=== PATIENT | male | born 1965 | race Caucasian/White ===

== ENCOUNTER → 2020-04-28 13:40 | Outpatient (BNVA) | payer OTHER, SELFPAY | PROVIDERS: PCP Family Medicine; Referring Provider Family Medicine; Visit Provider Internal Medicine | DX: E11.65 Type 2 diabetes mellitus with hyperglycemia (principal); E78.5 Hyperlipidemia, unspecified; I10 Essential (primary) hypertension | CPT/HCPCS: 99205 ==

== ENCOUNTER → 2020-06-22 14:33 | Outpatient (BNVA) | payer OTHER, SELFPAY | PROVIDERS: PCP Family Medicine; Visit Provider Internal Medicine | DX: E11.65 Type 2 diabetes mellitus with hyperglycemia (principal); E78.5 Hyperlipidemia, unspecified; I10 Essential (primary) hypertension | CPT/HCPCS: 99214 ==

== ENCOUNTER 2020-06-24 16:39 | Outpatient (CLI) | payer OTHER, SELFPAY ==
--- NOTE | 2020-06-24 16:45 | MR_ITS ---
WS: [id number] MRI LEFT SHOULDER NONCONTRAST TECHNIQUE: Sagittal T2, coronal T1, T2 and proton density imaging. Axial gradient PDE imaging. CLINICAL INFORMATION: M67.912 - Unspecified disorder of synovium and tendon, left shoulder COMPARISON: None. FINDINGS: Mild degenerative arthritis at the AC joint with mild edema. Mild downsloping of the acromion. Preser vation of the subacromial space. Normal supraspinatus and infraspinatus. Normal teres minor. Normal s ubscapularis. No high-grade rotator cuff tears. Mild tendinopathy in the distal supraspinatus. Normal intra-articular biceps tendon. Normal biceps tendon in the bicipital groove. Normal biceps labral anchor. Degenerative fraying of th e glenoid labrum. Small subcoracoid effusion. MR/MR shoulder LT wo con* [id number] IMPRESSION: 1. Mild degenerative arthritis at the AC joint with mild edema. 2. No high-grade rotator cuff tear. Tendinopathy in the distal supraspinatus. 3. Normal intra-articular biceps tendon. Normal biceps tendon in the bicipital groove. 4. Mild degenerative fraying of the glenoid labrum. 5. Small subcoracoid effusion. 6. No other significant findings.
== END 2020-06-24 16:40 | disposition home or self-care (01) ==
LOC: RADSHAW 16:42
PROVIDERS: PCP Family Medicine; Visit Provider Orthopaedic Surgery
DX: M67.912 Unspecified disorder of synovium and tendon, left shoulder (principal); M25.412 Effusion, left shoulder; M19.012 Primary osteoarthritis, left shoulder
CPT/HCPCS: 73221

== ENCOUNTER 2020-07-13 12:20 | Outpatient (RCR) | payer OTHER, SELFPAY | END 2020-08-06 23:59 | disposition home or self-care (01) | LOC: SPT 12:20 | PROVIDERS: PCP Family Medicine; Referring Provider Orthopaedic Surgery; Visit Provider Orthopaedic Surgery | DX: M75.02 Adhesive capsulitis of left shoulder (principal) | CPT/HCPCS: 97110; 97161 ==

== ENCOUNTER 2020-08-07 06:00 | Outpatient (RCR) | payer OTHER, SELFPAY | END 2020-09-06 23:59 | disposition home or self-care (01) | LOC: SPT 06:00 | PROVIDERS: PCP Family Medicine; Referring Provider Orthopaedic Surgery; Visit Provider Orthopaedic Surgery | DX: M75.02 Adhesive capsulitis of left shoulder (principal) | CPT/HCPCS: 97110; 97140 ==

== ENCOUNTER → 2020-08-26 08:32 | Outpatient (BNVA) | payer OTHER, SELFPAY | PROVIDERS: PCP Family Medicine; Visit Provider Nurse Practitioner Family | DX: R31.0 Gross hematuria (principal) | CPT/HCPCS: 81003; 88112 ==

== ENCOUNTER 2020-09-07 06:00 | Outpatient (RCR) | payer OTHER, SELFPAY | END 2020-10-06 23:59 | disposition home or self-care (01) | LOC: SPT 06:00 | PROVIDERS: PCP Family Medicine; Referring Provider Orthopaedic Surgery; Visit Provider Orthopaedic Surgery | DX: M75.02 Adhesive capsulitis of left shoulder (principal) | CPT/HCPCS: 97110 ==

== ENCOUNTER 2020-10-13 07:31 | Outpatient (CLI) | payer OTHER, SELFPAY ==
[2020-10-13] MEDS: iohexol 300 mg/mL 100 mL Btl IV (08:07)
--- NOTE | 2020-10-13 08:30 | CT_ITS ---
WS: [id number] CT ABDOMEN AND PELVIS WITH AND WITHOUT CONTRAST HISTORY: GROSS HEMATURIA TECHNIQUE: Unenhanced 5 mm axial imaging first performed through the abdomen. Post contrast imaging t hrough the abdomen and pelvis. Oral contrast has not been provided. Sagittal and coronal reformats a re submitted. All CT scans at [facility] use at least one of these dose optimization tech niques: automated exposure control; mA and/or kV adjustment per patient size (includes targeted exams where dose is matched to clinical indication); or iterative reconstruction. CONTRAST: Omnipaque 300; 95 mL IV. DLP: 2423.79 mGy.cm COMPARISON: None available. Benign granuloma LEFT lower lobe. Chronic emphysema. Heart size is normal. No hiatal hernia. Mild enlargement of the liver. Variable density and enhancement throughout the liver and changes of h epatic steatosis with areas of sparing. No bile duct dilatation. Normal portal vein. Normal spleen. N ormal pancreas and gallbladder. Adrenal glands are benign. Mild to moderate atherosclerosis of the ab dominal aorta with no aneurysm. Calcifications extend into the iliac arteries bilaterally. No signifi cant obstruction of the mesenteric arteries. RIGHT kidney: 12.3 cm in length. No calcification or solid mass or obstruction. Cortical cyst measure s 8 mm in the anterior kidney. Normal ureter. No uroepithelial lesions. Moderate opacification RIGHT ureter. LEFT kidney: 11.9 cm in length. No renal or ureteral calcification or obstruction. There are multiple cysts in the kidney. The largest in the upper pole measures 3.4 x 2.8 cm. There are additional small er cortical cysts. No solid mass. No uroepithelial lesions. Very intermittent visualization of the ur eter on the delayed study. Supraumbilical abdominal wall hernia contains fat only. There is an additional smaller umbilical madhu ia containing fat only. No ascites or adenopathy. Mild diffuse fecal retention. Anastomotic sutures are noted within the RIGHT abdomen. Partial colonic resection. The appendix is not identified. Moderately well distended urinary bladder on the delayed imaging. No intraluminal filling defect. No bladder wall thickening or asymmetry. CT/CT abdomen pelvis wo/w [id number] IMPRESSION: 1. No solid renal mass or calcifications. 2. Bilateral renal cysts. 3. No filling defect or enhancing tumor identified in the urinary bladder. 4. Mild hepatomegaly with diffuse moderate hepatic steatosis. 5. Partial RIGHT colon resection. Anastomotic sutures are identified with no m ass or obstruction at the anastomosis. 6. Umbilical and supraumbilical fat-containing hernias.
== END 2020-10-13 07:32 | disposition home or self-care (01) ==
LOC: RAD 07:33
PROVIDERS: PCP Family Medicine; Visit Provider Nurse Practitioner Family
DX: R31.0 Gross hematuria (principal); N28.1 Cyst of kidney, acquired; R16.0 Hepatomegaly, not elsewhere classified; K76.0 Fatty (change of) liver, not elsewhere classified; K42.9 Umbilical hernia without obstruction or gangrene; K43.9 Ventral hernia without obstruction or gangrene
CPT/HCPCS: 74178; 81003

== ENCOUNTER → 2022-12-05 16:00 | Outpatient (BNVA) | payer OTHER, SELFPAY | PROVIDERS: PCP Family Medicine; Visit Provider Family Medicine | DX: E11.65 Type 2 diabetes mellitus with hyperglycemia (principal); E78.5 Hyperlipidemia, unspecified; I10 Essential (primary) hypertension | CPT/HCPCS: 80053; 80061; 81000; 82043; 82607; 83036; 84443; 85025 ==

== ENCOUNTER → 2023-02-12 15:50 | Outpatient (BNVA) | payer OTHER, SELFPAY | PROVIDERS: PCP Family Medicine; Visit Provider Family Medicine | DX: E11.65 Type 2 diabetes mellitus with hyperglycemia (principal); K21.9 Gastro-esophageal reflux disease without esophagitis | CPT/HCPCS: 80048; 80061; 83036 ==

== ENCOUNTER 2023-04-20 23:17 | Inpatient (IN) | payer OTHER, SELFPAY ==
[2023-04-20 23:25] VITALS: BP 145/88; PULSE 107; RESP 18; TEMP 36.1; O2SAT 97
--- NOTE | 2023-04-20 23:28 | ECG_ITS ---
[facility] Test Date: 2023-04-21 Pat Name: Braeden Cuellar Department: Room: Gender: Male Manager Creative: : 1965 Requested By: Rm Rodrigues Order Number: [id number] Dino MD: Josh Lee M.D. Measurements Intervals [place] Rate: 104 P: 75 MD: 149 QRS: 52 QRSD: 80 T: -69 QT: 337 QTc: 444 Interpretive Statements SINUS TACHYCARDIA POSSIBLE INFERIOR MYOCARDIAL INFARCTION , OF INDETERMINATE AGE [30 ms Q WAVE IN II/aVF] No previous ECG available for comparison Electronically Signed On 04-23-2023 7:58:47 ADMINISTRATIVE PERSONAL ASSISTANT by Josh Lee M.D. [id number]
--- NOTE | 2023-04-20 23:59 | ECG_ITS ---
[facility] Test Date: 2023-04-20 Pat Name: Braeden Cuellar Department: Room: Gender: Male New Car Inspector: : 1965 Requested By: Pearl Flores Order Number: [id number] Dino MD: Josh Lee M.D. Measurements Intervals [place] Rate: 114 P: 83 OK: 132 QRS: 79 QRSD: 94 T: -72 QT: 326 QTc: 449 Interpretive Statements SINUS TACHYCARDIA ST DEVIATION AND MODERATE T-WAVE ABNORMALITY, CONSIDER INFERIOR ISCHEMIA [-0.1+ mV T-WAVE IN II/aVF] No previous ECG available for comparison Electronically Signed On 04-23-2023 7:58:51 SHIP PROPELLER FINISHER by Josh Lee M.D. [id number]
--- NOTE | 2023-04-20 23:59 | XRR_ITS ---
PROCEDURE INFORMATION: Exam: XR Chest Exam date and time: 04/21/2023 12:03 AM Age: 58 years old Clinical indication: Chest pressure; Patient HX: C/O chest pain; Additional info: Cp TECHNIQUE: Imaging protocol: Radiologic exam of the chest. Views: 1 view. COMPARISON: CR XR shoulder RT min 2V* [id number] 10/31/2021 3:38 PM FINDINGS: Lungs: Unremarkable. No consolidation. Pleural spaces: Unremarkable. No pleural effusion. No pneumothorax. Heart/Mediastinum: Unremarkable. No cardiomegaly. Bones/joints: Unremarkable. XR/XR chest 1V [id number] IMPRESSION: No acute findings.
[2023-04-21] VITALS (18 sets, daily range): BP systolic 104–131; BP diastolic 66–88; PULSE 70–109; RESP 16–21; TEMP 36.5–36.8; O2SAT 94–98; BMI 26.2
[2023-04-21 00:17] LABS: Basophils # 0.1 10^3/uL (0.0-0.1); Basophils % 1.3 %; Eosinophils # 0.2 10^3/uL (0.0-0.8); Eosinophils % 1.9 %; Hematocrit 51.5 % (37-53); Lymphocytes # 2.2 10^3/uL (0.8-4.8); Lymphocytes % 23.6 %; Mean Corpuscular HGB Conc 33.8 g/dL (30-55); Mean Corpuscular Hemoglobin 28.5 pg (27-33); Mean Corpuscular Volume 84.3 fl (82-101); Mean Platelet Volume 10.3 fL (7.4-10.4); Monocytes # 1.1 10^3/uL (0.2-0.9); Monocytes % 11.5 %; Neutrophils # 5.81 10^3/uL (1.8-7.7); Neutrophils % 61.5 %; Nucleated Red Blood Cells % 0 %; Platelet Count 237 10^3/cmm (157-399); Red Blood Count 6.11 10^6/uL (3.85-5.65); Red Cell Distribution Width 14.3 % (12.1-15.1); White Blood Count 9.45 10^3/uL (3.29-11.43)
--- NOTE | 2023-04-21 00:25 | CTR_ITS ---
PROCEDURE INFORMATION: Exam: CTA Chest With Contrast Exam date and time: 04/21/2023 12:35 AM Age: 58 years old Clinical indication: Chest pressure; Patient HX: C/O chest pain. Tachycardic. Currently anticoagulated for dvt. ; Additional info: R/O pe, HX of dvt, tachy w/ ekg changes TECHNIQUE: Imaging protocol: Computed tomographic angiography of the chest with contrast. Exam focused on the arteries. 3D rendering (Not supervised by radiologist): MIP and/or 3D reconstructed images were created by the technologist. Radiation optimization: All CT scans at this facility use at least one of these dose optimization techniques: automated exposure control; mA and/or kV adjustment per patient size (includes targeted exams where dose is matched to clinical indication); or iterative reconstruction. Contrast material: OMNI 350; Contrast volume: 59 ml; Contrast route: INTRAVENOUS (IV); COMPARISON: CR (CHEST, ) 04/21/2023 12:03 AM RADIATION DOSE METRICS: Total DLP (mGy-cm): 366.33 FINDINGS: Pulmonary arteries: Normal. No pulmonary emboli. Aorta: Ascending thoracic aorta dilated at 3.6 cm. Lungs: Unremarkable. No consolidation. No masses. Pleural spaces: Unremarkable. No pneumothorax. No pleural effusion. Heart: Unremarkable. No cardiomegaly. No pericardial effusion. Lymph nodes: Scattered subcentimeter short axis nonspecific mediastinal lymph nodes. Kidneys and ureters: Left kidney cyst, negative for follow-up advised. Bones/joints: Unremarkable. No acute fracture. Soft tissues: Unremarkable. CT/CT angio chest PE protcl [id number] IMPRESSION: 1. Negative for pulmonary embolus 2. Scattered subcentimeter short axis nonspecific mediastinal lymph nodes. 3. Ascending thoracic aorta dilated at 3.6 cm. 4. Left kidney cyst, negative for follow-up advised.
[2023-04-21 00:27] LABS: Influenza A by IFA negative (Negative); Influenza B by IFA negative (Negative)
--- NOTE | 2023-04-21 00:27 | W.ED.CHESTPA ---
Documented by User: MIKAELA Coopre 04/21/23 01:48 HPI - Chest Pain General: Chief Complaint: Chest Pain Stated Complaint: Shoulder pain down arm Time Seen by Provider: 04/20/23 23:58 Source: patient and family Mode of arrival: ambulatory Limitations: no limitations History of Present Illness: Patient presents emergency department today accompanied by his for evaluation treatment of chest pains and left arm pain. Patient reports that he was working in his wood shop approximately 3 days ago when pain started. He reports pain across his chest from right to left and extending down into his left arm. He also feels pain in his back around his shoulder blades. notes he has been increasingly fatigued since that time and he has had a little bit of cough and shortness of breath. He was a little dizzy when the pain originally started but has not had any since. He denies headache or nasal congestion. No fevers. He has not had vomiting or diarrhea. Patient reports about 8 years ago he had a DVT in his leg. Since that time he has been anticoagulated. He has no previous history of PE. Patient has a history of diabetes, emphysema and hypertension for which she takes medication. Patient reports he has been taking his medications as prescribed during this time. Review of Systems General: Reports: 10 or more systems reviewed and unremarkable except in HPI and below PFSH ED PFSH: Medical History Supraumbilical hernia Umbilical hernia Hepatic steatosis Emphysema of lung Atherosclerosis Bilateral renal cysts History of colon polyps Smoker Blood clotting disorder Hypertension Tremor of both hands Surgical History History of partial colectomy partial right colon resection History of tonsillectomy Family History Mother , at age 60 Diabetes CAD (coronary artery disease) Brother Cancer throat Other Parkinsonism Denies family history of Stroke Social History Smoking and tobacco/nicotine status: current every day tobacco/nicotine user cigarettes Packs smoked per day: 1.5 Quit status (tobacco/nicotine): not considering quitting Alcohol intake: never Substance/Drug Use: former Date of last use: marijuana Household members: spouse Marital status: Number of children: 2 Number of grandchildren: 4 service: No Current occupational status: employed 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[employer]) Leisure activites: music and other Leisure activities details: motorcycle Special tod needs: No Agree to transfusion: Yes Physical Exam Const: COMMON NORMALS: no acute distress, patient oriented x3 and alert Eye: COMMON NORMALS: Equal, round and reactive pupils present, EOMs intact bilaterally and conjunctivae normal CONJUNCTIVA: Yes conjunctivae normal PUPIL: Yes Equal, round and reactive pupils present Neck/C-Spine: COMMON NORMALS: no JVD Lymph: LYMPHATIC: no lymphadenopathy noted Resp: COMMON NORMALS: normal respiratory effort, No retractions and No use of accessory muscles OTHER: Diminished breath sounds bilaterally. Oxygen 97% on room air. Cardio: COMMON NORMALS: no JVD and regular rate RATE: regular rate GI: OTHER: Normoactive bowel sounds. Abdomen is soft. Nontender on palpation. : COMMON NORMALS: Yes no CVA tenderness BLADDER/KIDNEY EXAM: Yes no CVA tenderness Back/Pelvis: COMMON NORMALS: no CVA tenderness, thoracic and lumbar spine normal to inspection and thoraco-lumbar ROM normal Extremity: COMMON NORMALS: normal to inspection, full ROM and no pedal edema Neuro: COMMON NORMALS: patient oriented x3 SENSORIUM/ORIENTATION: Yes alert Skin: COMMON NORMALS: no rashes or lesions noted and turgor normal GENERAL SKIN EXAM: no rashes or lesions noted and turgor normal Course Vital Signs: Vital signs: Vital Signs Temperature 98.3 F 04/21/23 19:32 Pulse Rate 80 04/21/23 19:32 Respiratory Rate 16 04/21/23 19:32 Blood Pressure 110/69 04/21/23 19:32 Pulse Oximetry 95 04/21/23 19:32 Oxygen Delivery Me thod Room Air 04/21/23 19:32 MDM - Chest Pain Medical Decision Making Patient presents emergency department today for evaluation treatment of generalized upper chest pain radiating into the left arm and affecting his upper back between his shoulder blades. Patient reports that this pain has waxed and waned but never fully resolved for the last 3 days. Initially, he felt dizzy but, states dizziness has not returned. He reports not being otherwise ill. While he does have some cough, he has not had any congestion, sore throat, or fever. Patient does have a history of DVT and is currently anticoagulated. Patient's initial EKG from triage was shown to Dr. Reina. There was some concerns with findings on this EKG. Lab work shows concerns for an elevated troponin at baseline. Given patient's age, history, EKG findings, and tachycardia on arrival, Dr. Reina recommended proceeding directly to a CTA rather than waiting for a D-dimer. I did discuss these concerns with the patient and his who both agreed to proceeding on with the scan of the chest. Given the patient's elevated troponins, we will certainly need to wait for a 2-hour troponin to further evaluate the cause of the patient's chest pains. Transfer of care to Dr. Reina at 0100 Lab Data 04/21/23 00:00 04/21/23 00:00 Radiology Impressions Chest X-Ray 04/20/23 23:59 IMPRESSION: No acute findings. Chest CTA 04/21/23 00:25 IMPRESSION: 1. Negative for pulmonary embolus 2. Scattered subcentimeter short axis nonspecific mediastinal lymph nodes. 3. Ascending thoracic aorta dilated at 3.6 cm. 4. Left kidney cyst, negative for follow-up advised. Laboratory Results WBC 9.45 10^3/uL (3.29-11.43) 04/21/23 00:00 RBC 6.11 10^6/uL (3.85-5.65) H 04/21/23 00:00 Hgb 17.40 g/dL (11.27-16.99) H 04/21/23 00:00 Hct 51.5 % (37-53) 04/21/23 00:00 MCV 84.3 fl (82-101) 04/21/23 00:00 MCH 28.5 pg (27-33) 04/21/23 00:00 MCHC 33.8 g/dL (30-55) 04/21/23 00:00 RDW 14.3 % (12.1-15.1) 04/21/23 00:00 Plt Count 237 10^3/cmm (157-399) 04/21/23 00:00 MPV 10.3 fL (7.4-10.4) 04/21/23 00:00 Neut % (Auto) 61.5 % 04/21/23 00:00 Lymph % (Auto) 23.6 % 04/21/23 00:00 Mitchell % (Auto) 11.5 % 04/21/23 00:00 Eos % (Auto) 1.9 % 04/21/23 00:00 Baso % (Auto) 1.3 % 04/21/23 00:00 Neut # (Auto) 5.81 10^3/uL (1.8-7.7) 04/21/23 00:00 Lymph # (Auto) 2.2 10^3/uL (0.8-4.8) 04/21/23 00:00 Mitchell # (Auto) 1.1 10^3/uL (0.2-0.9) H 04/21/23 00:00 Eos # (Auto) 0.2 10^3/uL (0.0-0.8) 04/21/23 00:00 Baso # (Auto) 0.1 10^3/uL (0.0-0.1) 04/21/23 00:00 Nucleated RBC % (auto) 0 % 04/21/23 00:00 Nucleated RBCs # 0.0 /100WBC 04/21/23 00:00 Sodium 131 mmol/L (136-145) L 04/21/23 00:00 Potassium 4.2 mmol/L (3.5-5.1) 04/21/23 00:00 Chloride 95 mmol/L (98-107) L 04/21/23 00:00 Carbon Dioxide 21 mmol/L (22-29) L 04/21/23 00:00 Anion Gap 19.2 (5-19) H 04/21/23 00:00 BUN 14 mg/dL (6-20) 04/21/23 00:00 Creatinine 0.8 mg/dL (0.7-1.2) 04/21/23 00:00 GFR Calculation 99.3 mL/min (90-130) 04/21/23 00:00 Glucose 291 mg/dL (65-115) H 04/21/23 00:00 Calculated Osmolality 283 mOsm/kg (285-295) L 04/21/23 00:00 Calcium 9.8 mg/dL (8.5-10.5) 04/21/23 00:00 Total Bilirubin 0.6 mg/dL (0.15-1.2) 04/21/23 00:00 AST 22 U/L (0-40) 04/21/23 00:00 ALT 18 U/L (0-41) 04/21/23 00:00 Alkaline Phosphatase 81 U/L (40-130) 04/21/23 00:00 Troponin T Baseline 249 ng/L (0-15) H* 04/21/23 00:00 Troponin T 120 Minute 286.4 ng/L (0-15) H 04/21/23 01:30 Delta Troponin T 37.4 ABS# (0-10) H* 04/21/23 01:30 NT-Pro-B Natriuret Pep 1983 pg/mL (0-125) H 04/21/23 00:00 Total Protein 7.3 g/dL (6.6-8.7) 04/21/23 00:00 Albumin 4.4 g/dL (3.5-5.2) 04/21/23 00:00 Globulin 2.9 g/dL (1.3-4.6) 04/21/23 00:00 Influenza Type A Ag negative (Negative) 04/21/23 00:00 Influenza Type B Ag negative (Negative) 04/21/23 00:00 SARS-CoV-2 Ag (Rapid) Negative (Negative) 04/21/23 00:00 All radiology interpretation(s) finalized by discharge Discharge Plan Discharge Patient Disposition: Admitted As Inpatient Admit Provider: Elysia Mc Clinical Impression: NSTEMI (non-ST elevated myocardial infarction) Condition: Stable Coding Level of Care Code ED Traffic Circuit Engineer for Chg Fwd Documented by User: Rm Reina DO 04/21/23 22:40 HPI - Chest Pain General: Chief Complaint: Chest Pain Stated Complaint: Shoulder pain down arm Time Seen by Provider: 04/20/23 23:58 PFSH ED PFSH: Medical History Supraumbilical hernia Umbilical hernia Hepatic steatosis Emphysema of lung Atherosclerosis Bilateral renal cysts History of colon polyps Smoker Blood clotting disorder Hypertension Tremor of both hands Surgical History History of partial colectomy partial right colon resection History of tonsillectomy Family History Mother , at age 60 Diabetes CAD (coronary artery disease) Brother Cancer throat Other Parkinsonism Denies family history of Stroke Social History Smoking and tobacco/nicotine status: current every day tobacco/nicotine user cigarettes Packs smoked per day: 1.5 Quit status (tobacco/nicotine): not considering quitting Alcohol intake: never Substance/Drug Use: former Date of last use: marijuana Household members: spouse Marital status: Number of children: 2 Number of grandchildren: 4 service: No Current occupational status: employed 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[employer]) Leisure 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 Patient reports that this pain has waxed and waned but never fully resolved for the last 3 days. Initially, he felt dizzy but, states dizziness has not returned. He reports not being otherwise ill. While he does have some cough, he has not had any congestion, sore throat, or fever. Patient does have a history of DVT and is currently anticoagulated. Patient's initial EKG from triage was shown to Dr. Reina. There was some concerns with findings on this EKG. Lab work shows concerns for an elevated troponin at baseline. Given patient's age, history, EKG findings, and tachycardia on arrival, Dr. Reina recommended proceeding directly to a CTA rather than waiting for a D-dimer. I did discuss these concerns with the patient and his who both agreed to proceeding on with the scan of the chest. Given the patient's elevated troponins, we will certainly need to wait for a 2-hour troponin to further evaluate the cause of the patient's chest pains. Transfer of care to Dr. Reina at 0100 This patient was originally seen by Mrs. Tj PA-C.? I agree with her history, evaluation, and treatment. This patient had a significant delta troponin of 37 at 2 hours. He is already anticoagulated on rivaroxaban. He is given 300 mg Plavix and aspirin. He is pain-free here in the ER. He will be admitted for chest pain and non-ST elevation [place]. Hospitalist will see the patient. Lab Data 04/21/23 00:00 04/21/23 00:00 Radiology Impressions Chest X-Ray 04/20/23 23:59 IMPRESSION: No acute findings. Chest CTA 04/21/23 00:25 IMPRESSION: 1. Negative for pulmonary embolus 2. Scattered subcentimeter short axis nonspecific mediastinal lymph nodes. 3. Ascending thoracic aorta dilated at 3.6 cm. 4. Left kidney cyst, negative for follow-up advised. Laboratory Results WBC 9.45 10^3/uL (3.29-11.43) 04/21/23 00:00 RBC 6.11 10^6/uL (3.85-5.65) H 04/21/23 00:00 Hgb 17.40 g/dL (11.27-16.99) H 04/21/23 00:00 Hct 51.5 % (37-53) 04/21/23 00:00 MCV 84.3 fl (82-101) 04/21/23 00:00 MCH 28.5 pg (27-33) 04/21/23 00:00 MCHC 33.8 g/dL (30-55) 04/21/23 00:00 RDW 14.3 % (12.1-15.1) 04/21/23 00:00 Plt Count 237 10^3/cmm (157-399) 04/21/23 00:00 MPV 10.3 fL (7.4-10.4) 04/21/23 00:00 Neut % (Auto) 61.5 % 04/21/23 00:00 Lymph % (Auto) 23.6 % 04/21/23 00:00 Mitchell % (Auto) 11.5 % 04/21/23 00:00 Eos % (Auto) 1.9 % 04/21/23 00:00 Baso % (Auto) 1.3 % 04/21/23 00:00 Neut # (Auto) 5.81 10^3/uL (1.8-7.7) 04/21/23 00:00 Lymph # (Auto) 2.2 10^3/uL (0.8-4.8) 04/21/23 00:00 [place] # (Auto) 1.1 10^3/uL (0.2-0.9) H 04/21/23 00:00 Eos # (Auto) 0.2 10^3/uL (0.0-0.8) 04/21/23 00:00 Baso # (Auto) 0.1 10^3/uL (0.0-0.1) 04/21/23 00:00 Nucleated RBC % (auto) 0 % 04/21/23 00:00 Nucleated RBCs # 0.0 /100WBC 04/21/23 00:00 Sodium 131 mmol/L (136-145) L 04/21/23 00:00 Potassium 4.2 mmol/L (3.5-5.1) 04/21/23 00:00 Chloride 95 mmol/L (98-107) L 04/21/23 00:00 Carbon Dioxide 21 mmol/L (22-29) L 04/21/23 00:00 Anion Gap 19.2 (5-19) H 04/21/23 00:00 BUN 14 mg/dL (6-20) 04/21/23 00:00 Creatinine 0.8 mg/dL (0.7-1.2) 04/21/23 00:00 GFR Calculation 99.3 mL/min (90-130) 04/21/23 00:00 Glucose 291 mg/dL (65-115) H 04/21/23 00:00 Calculated Osmolality 283 mOsm/kg (285-295) L 04/21/23 00:00 Calcium 9.8 mg/dL (8.5-10.5) 04/21/23 00:00 Total Bilirubin 0.6 mg/dL (0.15-1.2) 04/21/23 00:00 AST 22 U/L (0-40) 04/21/23 00:00 ALT 18 U/L (0-41) 04/21/23 00:00 Alkaline Phosphatase 81 U/L (40-130) 04/21/23 00:00 Troponin T Baseline 249 ng/L (0-15) H* 04/21/23 00:00 Troponin T 120 Minute 286.4 ng/L (0-15) H 04/21/23 01:30 Delta Troponin T 37.4 ABS# (0-10) H* 04/21/23 01:30 NT-Pro-B Natriuret Pep 1983 pg/mL (0-125) H 04/21/23 00:00 Total Protein 7.3 g/dL (6.6-8.7) 04/21/23 00:00 Albumin 4.4 g/dL (3.5-5.2) 04/21/23 00:00 Globulin 2.9 g/dL (1.3-4.6) 04/21/23 00:00 Influenza Type A Ag negative (Negative) 04/21/23 00:00 Influenza Type B Ag negative (Negative) 04/21/23 00:00 SARS-CoV-2 Ag (Rapid) Negative (Negative) 04/21/23 00:00 Discharge Plan Discharge Patient Disposition: Admitted As Inpatient Admit Provider: Elysia Mc Clinical Impression: NSTEMI (non-ST elevated myocardial infarction) Condition: Stable Coding Level of Care Code ED Traffic Circuit Engineer for Mario Barcenas
[2023-04-21 00:30] LABS: SARS Covid-2 Antigen Negative (Negative)
[2023-04-21] MEDS: iohexol 350 mg/mL 500 mL Btl (per mL) IV (00:37)
[2023-04-21 00:44] LABS: Troponin(5th) Baseline 249 ng/L (0-15)
[2023-04-21 00:48] LABS: Alanine Aminotransferase 18 U/L (0-41); Albumin Level 4.4 g/dL (3.5-5.2); Alkaline Phosphatase 81 U/L (40-130); Anion Gap 19.2 (5-19); Aspartate Amino Transferase 22 U/L (0-40); Blood Urea Nitrogen 14 mg/dL (6-20); Calcium 9.8 mg/dL (8.5-10.5); Carbon Dioxide 21 mmol/L (22-29); Chloride 95 mmol/L (98-107); Globulin 2.9 g/dL (1.3-4.6); Glomerular Filtration Rate 99.3 mL/min (90-130); Glucose 291 mg/dL (65-115); NT Pro B Type Natriuretic Pept 1983 pg/mL (0-125); Osmolality Calculated 283 mOsm/kg (285-295); Potassium 4.2 mmol/L (3.5-5.1); Sodium 131 mmol/L (136-145); Total Bilirubin 0.6 mg/dL (0.15-1.2); Total Protein 7.3 g/dL (6.6-8.7)
--- NOTE | 2023-04-21 00:50 | PC.NURSE ---
Hypnotherapist gave Lea SEGOVIA report at 0050. pt currently in CT.
[2023-04-21 01:56] LABS: Troponin 5 2HR 286.4 ng/L (0-15)
[2023-04-21 01:57] LABS: Troponin 5 2HR Delta 37.4 ABS# (0-10)
--- NOTE | 2023-04-21 01:59 | ECG_ITS ---
Test Date: 2023-04-21 Pat Name: Braeden Cuellar Department: Room: Gender: Male Youth Director: : 1965 Requested By: Pearl Flores Order Number: [id number] Dino MD: Josh Lee M.D. Measurements Intervals [place] Rate: 86 P: 71 CO: 152 QRS: 52 QRSD: 85 T: -53 QT: 358 QTc: 430 Interpretive Statements SINUS RHYTHM MODERATE T-WAVE ABNORMALITY, CONSIDER INFERIOR ISCHEMIA [-0.1+ mV T-WAVE IN II/aVF] Compared to ECG 04/21/2023 00:09:22 T-wave abnormality now present Possible ischemia now present Sinus tachycardia no longer present Myocardial infarct finding no longer present Electronically Signed On 04-23-2023 8:05:55 MANAGER PRICING by Josh Lee M.D. [id number]
[2023-04-21] MEDS: aspirin 81 mg Chew Tablet 324 MG PO (02:21)
[2023-04-21] MEDS: clopidogrel 300 mg Tablet PO (02:21)
[2023-04-21] MEDS: morphine 4 mg/mL SDV 1 mL 2 MG IVP (02:36)
[2023-04-21] MEDS: ondansetron 2 mg/ML SDV 2 mL 4 MG IVP (02:36)
--- NOTE | 2023-04-21 05:12 | P.HP_ITS ---
Providers/Chief Complaint 2 Admitting Physician: Elysia Mc MD Primary Care Provider: Meg De León MD Chief Complaint: Shoulder pain down arm History of Present Illness Braeden Cuellar is a 58 year old male with a past medical history of diabetes mellitus, hypertension, history of DVT and PE x2 currently on Xarelto , presenting to the hospital today with chest discomfort. Patient estimates the discomfort started approximately 4 days ago. States that the pain started around the right shoulder, radiated into middle of the chest and then into the left arm all the way down to the hand. Pain has been intermittent. It has never completely resolved, does tend to wax and pain when. No apparent exacerbating or relieving factors. Not worsened with exercise. Denies any other symptoms such as cough palpitations syncope. Denies any fever. No missed doses of Xarelto. Typically takes the medication and at night, last dose taken on May 21 at 8 PM. Review of Systems 2 General: Reports: 10 or more systems reviewed and unremarkable except in HPI and below Const: Denies: fever(s), chills or body aches Eyes: Denies: change in vision, blurry vision or photophobia ENMT: Reports: hoarseness; Denies: throat pain, enlarged tonsils, odynophagia or nasal congestion Card: Denies: chest pain, palpitations, irregular heart rhythm, edema, swelling of feet/ankles, lightheadedness, pre-syncope, dyspnea on exertion or orthopnea Resp: Denies: dyspnea, productive cough, non-productive cough, wheezing, stridor, pain on inspiration, change in phlegm color, hemoptysis or chest congestion GI: Denies: abdominal pain, nausea, vomiting, hematemesis, coffee ground emesis, dysphagia, heartburn, diarrhea, constipation, GI cramping, change in stool character, hematochezia or melena : Denies: flank pain, dysuria, urinary frequency, urinary urgency, urinary hesitancy or hematuria Musc: Denies: neck pain, back pain, extremity pain, joint swelling, joint warmth or deformity Neuro: Denies: headache(s), numbness in extremities, weakness in extremities, sensory changes, difficulty walking, frequent falls, dizziness, vertigo, behavioral changes, Slurred speech present or seizure-like activity Psych: Denies: anxiety, depression, suicidal ideation or homicidal ideation Endo: Denies: polyuria, polydipsia, tired all the time, cold intolerance or hot flashes Earl/Lymph: Denies: easy bruising or easy bleeding Medications/Allergies Home Medications Medication Instructions Recorded Confirmed Last Taken Type rivaroxaban 20 mg tablet (Xarelto) 20 mg PO BEDTIME 04/20/20 04/21/23 Unknown History empagliflozin 25 mg tablet 25 mg PO BEDTIME 04/21/23 04/21/23 Unknown History (Jardiance) famotidine 20 mg tablet 20 mg PO BEDTIME 04/21/23 04/21/23 Unknown History glipizide 10 mg tablet 10 mg PO BEDTIME 04/21/23 04/21/23 Unknown History lisinopril 10 mg tablet 20 mg PO BEDTIME 04/21/23 04/21/23 Unknown History metformin 500 mg 24 hr 2,000 mg PO BEDTIME 04/21/23 04/21/23 Unknown History tablet,extended release (gastric retention) simvastatin 40 mg tablet 40 mg PO BEDTIME 04/21/23 04/21/23 Unknown History sitagliptin phosphate 100 mg 100 mg PO BEDTIME 04/21/23 04/21/23 Unknown History tablet (Januvia) Allergies Allergy/AdvReac Type Severity Reaction Status Date / Time No Known Allergies Allergy Verified 04/20/23 23:28 PFSH Acute 2 PFSH: Medical History Supraumbilical hernia Umbilical hernia Hepatic steatosis Emphysema of lung Atherosclerosis Bilateral renal cysts History of colon polyps Smoker Blood clotting disorder Hypertension Tremor of both hands Surgical History History of partial colectomy partial right colon resection History of tonsillectomy Family History Mother , at age 60 Diabetes CAD (coronary artery disease) Brother Cancer throat Other Parkinsonism Denies family history of Stroke Social History Smoking and tobacco/nicotine status: current every day tobacco/nicotine user cigarettes Packs smoked per day: 1.5 Quit status (tobacco/nicotine): not considering quitting Alcohol intake: never Substance/Drug Use: former Date of last use: marijuana Household members: spouse Marital status: Number of children: 2 Number of grandchildren: 4 service: No Current occupational status: employed 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) Leisure activites: music and other Leisure activities details: motorcycle Special tod needs: No Agree to transfusion: Yes Vitals/I&O/Wt Last Vital Signs Temp 97.7 F 04/21/23 03:14 Pulse 82 04/21/23 03:19 Resp 20 H 04/21/23 03:14 BP 131/88 04/21/23 03:14 Pulse Ox 97 04/21/23 03:14 O2 Del Method Room Air 04/21/23 03:14 Weight last 48 hrs Weight 80.513 kg Weight 80.513 kg Weight 82.554 kg Physical Exam 2 Narrative: General: No acute distress, AO x3 HEENT: PERRLA, pupils bilaterally equal and reactive, pallors not present Chest: Normal vesicular breath sounds, no added sounds, equal good air entry bilaterally CVS: S1-S2 regular, no murmurs, no tachycardia, no gallops, no rubs Abdomen: Soft, nontender, no organomegaly, bowel sounds present Neuro: No focal deficits, no facial deformity, AO x3, power 5/5 in all limbs Data 04/21/23 00:00 04/21/23 00:00 Other data: Radiology Impressions Chest X-Ray 04/20/23 23:59 IMPRESSION: No acute findings. Chest CTA 04/21/23 00:25 IMPRESSION: 1. Negative for pulmonary embolus 2. Scattered subcentimeter short axis nonspecific mediastinal lymph nodes. 3. Ascending thoracic aorta dilated at 3.6 cm. 4. Left kidney cyst, negative for follow-up advised. Laboratory Results WBC 9.45 10^3/uL (3.29-11.43) 04/21/23 00:00 RBC 6.11 10^6/uL (3.85-5.65) H 04/21/23 00:00 Hgb 17.40 g/dL (11.27-16.99) H 04/21/23 00:00 Hct 51.5 % (37-53) 04/21/23 00:00 MCV 84.3 fl (82-101) 04/21/23 00:00 MCH 28.5 pg (27-33) 04/21/23 00:00 MCHC 33.8 g/dL (30-55) 04/21/23 00:00 RDW 14.3 % (12.1-15.1) 04/21/23 00:00 Plt Count 237 10^3/cmm (157-399) 04/21/23 00:00 MPV 10.3 fL (7.4-10.4) 04/21/23 00:00 Neut % (Auto) 61.5 % 04/21/23 00:00 Lymph % (Auto) 23.6 % 04/21/23 00:00 [place] % (Auto) 11.5 % 04/21/23 00:00 Eos % (Auto) 1.9 % 04/21/23 00:00 Baso % (Auto) 1.3 % 04/21/23 00:00 Neut # (Auto) 5.81 10^3/uL (1.8-7.7) 04/21/23 00:00 Lymph # (Auto) 2.2 10^3/uL (0.8-4.8) 04/21/23 00:00 [place] # (Auto) 1.1 10^3/uL (0.2-0.9) H 04/21/23 00:00 Eos # (Auto) 0.2 10^3/uL (0.0-0.8) 04/21/23 00:00 Baso # (Auto) 0.1 10^3/uL (0.0-0.1) 04/21/23 00:00 Nucleated RBC % (auto) 0 % 04/21/23 00:00 Nucleated RBCs # 0.0 /100WBC 04/21/23 00:00 Sodium 131 mmol/L (136-145) L 04/21/23 00:00 Potassium 4.2 mmol/L (3.5-5.1) 04/21/23 00:00 Chloride 95 mmol/L (98-107) L 04/21/23 00:00 Carbon Dioxide 21 mmol/L (22-29) L 04/21/23 00:00 Anion Gap 19.2 (5-19) H 04/21/23 00:00 BUN 14 mg/dL (6-20) 04/21/23 00:00 Creatinine 0.8 mg/dL (0.7-1.2) 04/21/23 00:00 GFR Calculation 99.3 mL/min (90-130) 04/21/23 00:00 Glucose 291 mg/dL (65-115) H 04/21/23 00:00 Calculated Osmolality 283 mOsm/kg (285-295) L 04/21/23 00:00 Calcium 9.8 mg/dL (8.5-10.5) 04/21/23 00:00 Total Bilirubin 0.6 mg/dL (0.15-1.2) 04/21/23 00:00 AST 22 U/L (0-40) 04/21/23 00:00 ALT 18 U/L (0-41) 04/21/23 00:00 Alkaline Phosphatase 81 U/L (40-130) 04/21/23 00:00 Troponin T Baseline 249 ng/L (0-15) H* 04/21/23 00:00 Troponin T 120 Minute 286.4 ng/L (0-15) H 04/21/23 01:30 Delta Troponin T 37.4 ABS# (0-10) H* 04/21/23 01:30 NT-Pro-B Natriuret Pep 1983 pg/mL (0-125) H 04/21/23 00:00 Total Protein 7.3 g/dL (6.6-8.7) 04/21/23 00:00 Albumin 4.4 g/dL (3.5-5.2) 04/21/23 00:00 Globulin 2.9 g/dL (1.3-4.6) 04/21/23 00:00 Influenza Type A Ag negative (Negative) 04/21/23 00:00 Influenza Type B Ag negative (Negative) 04/21/23 00:00 SARS-CoV-2 Ag (Rapid) Negative (Negative) 04/21/23 00:00 A&P Assessment and plan (1) NSTEMI (non-ST elevated myocardial infarction): 58-year-old male without prior history of coronary artery disease, risk factors by way of hypertension and diabetes mellitus presenting to the emergency room today with chief complaints of chest pain. EKG showing nonspecific ST-T wave changes upon initial review Baseline troponin at 249, 2-hour delta at 37 Overall picture concerning for NSTEMI Received aspirin 325 mg in the emergency room and Plavix 300 mg. Patient typically takes Xarelto for history of PE, last dose taken at 8 PM on March 20, 2024. CTA negative for PE or dissection Start heparin drip Consult cardiology to assess for angiogram. As needed morphine for pain management add nitro patch check echocardiogram hold xarelto Plan DVT ppx: on heparin gtt Full code Attestations 2 Medical Necessity Statement*: > 2 midnight admission is anticipated Coding Level of Care Code Acute Code for [facility] Diagnoses NSTEMI (non-ST elevated myocardial infarction) I21.4
--- NOTE | 2023-04-21 06:04 | USCV_ITS ---
Braeden Cuellar Age: 58 Gender: M : 1965 Exam Date: 04/21/2023 14:45 Ordering Phys: Elysia Mc MD Technologist: Tommy Wick Exam Location: [facility] [place] Indication: nstemi BP: 106 / 66 HR: 85 Rhythm: Sinus Technical Quality: Adequate MEASUREMENTS (Male / Female) Normal Values 2D ECHO LVOT Diameter 2.0 cm LV Ejection Fraction MOD 2C 66.2 % LV Ejection Fraction 2C AL 66.6 % LA Diameter 3.3 cm LA Width 3.1 cm LA Height 3.9 cm RA Width 3.1 cm RA Height 3.7 cm Aorta at Sinotubular Diameter 2.9 cm IVC Diameter 1.4 cm M-MODE Aortic Annulus Diameter 4.0 cm LA Ao Ratio MM 0.8 MV E Point Septal Separation 0.5 cm DOPPLER AV Peak Velocity 108.0 cm/s LVOT Peak Velocity 93.0 cm/s AV Area Cont Eq vti 2.5 cm squared AV Area Cont Eq pk 2.8 cm squared MV Peak Velocity 81.0 cm/s MV Area PHT 5.6 cm squared Mitral E to A Ratio 0.8 MV E' Velocity 39.5 cm/s Mitral E to MV E' Ratio 10.3 Mitral E to LV E' Lateral Ratio 9.1 Mitral E to LV E' Septal Ratio 11.8 TR Peak Velocity 299.4 cm/s TR Peak Gradient 35.9 mmHg TR Mean Velocity 258.6 cm/s TR Mean Gradient 26.8 mmHg TR Velocity Time Integral 71.1 cm Right Atrial Pressure 3.0 mmHg Pulmonary Artery Systolic Pressu 38.9 mmHg PV Peak Velocity 82.0 cm/s RV Acceleration Time 0.1 s RV Ejection Time 0.3 s RV AcT/ET 0.4 FINDINGS Left Ventricle Normal left ventricular size, systolic function and wall thickness with a EF about 60 %, with no regional wall motion abnormalities. Normal left ventricular wall thickness. Normal diastolic filling pattern. Right Ventricle The right ventricle is normal in size and function. Right Atrium The right atrium is normal in size. Left Atrium The left atrium is normal in size. Mitral Valve Structurally normal mitral valve without significant stenosis or prolapse. There is n trivial mitral regurgitation. Aortic Valve Structurally normal aortic valve without significant sclerosis or stenosis. There is trivial aortic regurgitation. Tricuspid Valve Structurally normal tricuspid valve without significant stenosis. There is trivial to mild regurgitation. Pulmonary artery systolic pressure is normal. Pulmonic Valve Structurally normal pulmonic valve without significant stenosis. There is no pulmonic regurgitation. Pericardium Normal pericardium without effusion. Aorta Normal ascending aorta dimension. IVC The inferior vena cava appears normal. CONCLUSIONS Normal LV function with no significant valvular disease Radha Gomes MD (Electronically Signed) Final Date: 22 April 2023 09:59 S
[2023-04-21 06:16] LABS: Troponin 5 6HR 489.6 ng/L (0-15); Troponin 5 6HR Delta 240.6 ng/L (0-12)
[2023-04-21] MEDS: heparin 5,000 unit/mL INJ 1 mL IV ×2 (06:28→20:49)
[2023-04-21] MEDS: heparin drip 25,000 UNIT/500 ML PREMIX 22 UNIT IV (06:28)
[2023-04-21 06:31] LABS: Glucose Point of Care 92 mg/dL (70-110)
[2023-04-21] MEDS: nitroglycerin 1 gm/inch oint Pkt 0.5 INCH TOPICAL ×4 (06:44→23:31)
[2023-04-21] MEDS: pantoprazole DR 40 mg Tablet PO (08:01)
--- NOTE | 2023-04-21 09:20 | P.CONIM_ITS ---
Providers/Reason For Consult 2 Consulting Physician/Specialty*: Dr. Duke Reason for Consult*: Non-ST elevation [place] Attending Physician: Wagner Centeno MD Primary Care Provider: Meg De León MD History of Present Illness History of Present Illness Braeden Cuellar is a 58 year old male with history of diabetes hypertension hyperlipidemia and DVT/PE who was admitted to the hospital with chest discomfort occurred described as left-sided shoulder pain radiating across her chest is just to the left arm. Patient is a smoker 1 pack a day. Patient came to the emergency room to the hospital where he was found to have elevated troponin with most recent 1 is to 49 slightly higher from the 230 previous 1. EKG showed normal sinus rhythm with nonspecific ST-T changes inferiorly. No ST elevation or ST depression. Patient is doing okay now chest pain improved hemodynamically stable Review of Systems 2 General: Reports: 10 or more systems reviewed and unremarkable except in HPI and below Const: Denies: fever(s), chills or body aches Eyes: Denies: change in vision, blurry vision or photophobia ENMT: Reports: hoarseness; Denies: throat pain, enlarged tonsils, odynophagia or nasal congestion Card: Denies: chest pain, palpitations, irregular heart rhythm, edema, swelling of feet/ankles, lightheadedness, pre-syncope, dyspnea on exertion or orthopnea Resp: Denies: dyspnea, productive cough, non-productive cough, wheezing, stridor, pain on inspiration, change in phlegm color, hemoptysis or chest congestion GI: Denies: abdominal pain, nausea, vomiting, hematemesis, coffee ground emesis, dysphagia, heartburn, diarrhea, constipation, GI cramping, change in stool character, hematochezia or melena : Denies: flank pain, dysuria, urinary frequency, urinary urgency, urinary hesitancy or hematuria Musc: Denies: neck pain, back pain, extremity pain, joint swelling, joint warmth or deformity Neuro: Denies: headache(s), numbness in extremities, weakness in extremities, sensory changes, difficulty walking, frequent falls, dizziness, vertigo, behavioral changes, Slurred speech present or seizure-like activity Psych: Denies: anxiety, depression, suicidal ideation or homicidal ideation Endo: Denies: polyuria, polydipsia, tired all the time, cold intolerance or hot flashes Earl/Lymph: Denies: easy bruising or easy bleeding Medications/Allergies Home Medications Medication Instructions Recorded Confirmed Last Taken Type rivaroxaban 20 mg tablet (Xarelto) 20 mg PO BEDTIME 04/20/20 04/21/23 Unknown History empagliflozin 25 mg tablet 25 mg PO BEDTIME 04/21/23 04/21/23 Unknown History (Jardiance) famotidine 20 mg tablet 20 mg PO BEDTIME 04/21/23 04/21/23 Unknown History glipizide 10 mg tablet 10 mg PO BEDTIME 04/21/23 04/21/23 Unknown History lisinopril 10 mg tablet 20 mg PO BEDTIME 04/21/23 04/21/23 Unknown History metformin 500 mg 24 hr 2,000 mg PO BEDTIME 04/21/23 04/21/23 Unknown History tablet,extended release (gastric retention) simvastatin 40 mg tablet 40 mg PO BEDTIME 04/21/23 04/21/23 Unknown History sitagliptin phosphate 100 mg 100 mg PO BEDTIME 04/21/23 04/21/23 Unknown History tablet (Januvia) Allergies Allergy/AdvReac Type Severity Reaction Status Date / Time No Known Allergies Allergy Verified 04/20/23 23:28 Current Medications Generic Name Dose Route Start Last Admin Trade Name Freq PRN Reason Stop Dose Admin Heparin Sodium (Porcine) 0 unit 04/21/23 05:12 04/21/23 06:28 Heparin 5,000 Unit/Ml Inj 1 Ml IV 4,000 unit PRN PRN Administration Heparin weight-base protocol Protocol Heparin Sodium/Sodium Chloride 25,000 unit in 500 mls @ 0 mls/hr 04/21/23 05:15 04/21/23 06:28 Heparin Drip IV 13.66 unit/kg/hr .Q0M DEVIKA 22 mls/hr Administration Protocol Per Protocol Insulin Human Lispro 0 unit 04/21/23 08:00 04/21/23 08:00 Insulin Lispro 100 Unit/1 Ml SUBCUT Not Given WM&BEDTIME [facility] Protocol Nitroglycerin 0.5 inch 04/21/23 06:15 04/21/23 06:44 Nitroglycerin 1 Gm/Inch Oint Pkt TOPICAL 0.5 inch Q6H [facility] Administration Pantoprazole Sodium 40 mg 04/21/23 09:00 04/21/23 08:[address] 40 Mg Tablet PO 40 mg DAILY DEVIKA Administration PFSH Acute 2 PFSH: Medical History Supraumbilical hernia Umbilical hernia Hepatic steatosis Emphysema of lung Atherosclerosis Bilateral renal cysts History of colon polyps Smoker Blood clotting disorder Hypertension Tremor of both hands Surgical History History of partial colectomy partial right colon resection History of tonsillectomy Family History Mother , at age 60 Diabetes CAD (coronary artery disease) Brother Cancer throat Other Parkinsonism Denies family history of Stroke Social History Smoking and tobacco/nicotine status: current every day tobacco/nicotine user cigarettes Packs smoked per day: 1.5 Quit status (tobacco/nicotine): not considering quitting Alcohol intake: never Substance/Drug Use: former Date of last use: marijuana Household members: spouse Marital status: Number of children: 2 Number of grandchildren: 4 service: No Current occupational status: employed 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) Leisure activites: music and other Leisure activities details: motorcycle Special tod needs: No Agree to transfusion: Yes Vitals/I&O/Wt Last Vital Signs Temp 98.0 F 04/21/23 07:09 Pulse 95 04/21/23 07:09 Resp 20 H 04/21/23 07:09 BP 118/68 04/21/23 07:09 Pulse Ox 95 04/21/23 07:09 O2 Del Method Room Air 04/21/23 07:09 04/20/23 04/21/23 04/21/23 22:59 06:59 14:59 Intake Total 100 / 100 Output Total 900 / 900 Balance -800 / -800 Weight last 48 hrs Weight 177 lb Weight 177 lb 8 oz Weight 177 lb 8 oz Weight 182 lb Physical Exam 2 Const: COMMON NORMALS: no acute distress, patient oriented x3, no limitations, alert and well nourished HENMT: COMMON NORMALS: normocephalic, atraumatic, hearing grossly normal bilaterally and gingiva normal HEAD & SCALP: normocephalic and atraumatic Eye: COMMON NORMALS: Equal, round and reactive pupils present and EOMs intact bilaterally GENERAL EYE: appearance normal, both eyes and all related structures PUPIL: Yes Equal, round and reactive pupils present Neck/C-Spine: COMMON NORMALS: no JVD GENERAL: Yes normal visual inspection CAROTIDS: Yes normal carotid upstroke Chest: COMMONS NORMALS: normal inspection of the chest CHEST: Yes Symmetrical chest wall rise Resp: COMMON NORMALS: normal respiratory effort, No retractions, clear to auscultation bilaterally and percussion normal EFFORT & INSPECTION: Yes symmetric chest movement AUSCULTATION: clear to auscultation bilaterally P ERCUSSION: percussion normal Cardio: COMMON NORMALS: no JVD, regular rate, regular rhythm, S1 normal heart sound present, S2 normal heart sound present, No gallops present (Cardio), No clicks present (Cardio), No murmurs present (Cardio) and No rub (Cardio) R ATE: regular rate RHYTHM: regular rhythm HEART SOUNDS: S1 normal heart sound present and S2 normal heart sound present GI: COMMON NORMALS: Normal to inspection, nondistended, normoactive bowel sounds present, Soft to palpation and non-tender PALPATION: Yes Soft to palpation : COMMON NORMALS: Yes no CVA tenderness BLADDER/KIDNEY EXAM: Yes no CVA tenderness Back/Pelvis: COMMON NORMALS: no CVA tenderness Extremity: COMMON NORMALS: normal to inspection, full ROM, no joint enlargement, no clubbing, cyanosis or edema, no calf tenderness and no pedal edema Neuro: COMMON NORMALS: patient oriented x3, moves all extremities, no focal motor deficits and no sensory deficits noted SENSORIUM/ORIENTATION: Yes alert GAIT: Yes Normal gait present Psych: COMMON NORMALS: mental status grossly normal APPEARANCE: Yes grossly normal Skin: COMMON NORMALS: no rashes or lesions noted GENERAL SKIN EXAM: no rashes or lesions noted Data 04/21/23 00:00 04/21/23 00:00 A&P Assessment and plan (1) NSTEMI (non-ST elevated myocardial infarction): Patient to continue aspirin and was started on a heparin. His Xarelto dose was last night will hold for now. Plan for cardiac cath on Sunday sooner if needed. Will obtain an echocardiogram to assess his LV function. Will add Imdur and beta-zarina continue his other current medications. Risk and benefits of the procedure were explained to the patient agreeable to proceed. (2) Hypertension: Adequately controlled (3) Hyperlipidemia: On statin LDL goal less than 70 Qualifiers: Hyperlipidemia type: mixed hyperlipidemia Qualified Code(s): E78.2 - Mixed hyperlipidemia (4) History of DVT of lower extremity: Patient is off Xarelto started on IV heparin. Coding Level of Care Code 21636 Diagnoses NSTEMI (non-ST elevated myocardial infarction) I21.4 Hypertension I10 Mixed hyperlipidemia E78.2 Hyperlipidemia type: mixed hyperlipidemia History of DVT of lower extremity Z86.718
[2023-04-21] MEDS: aspirin 81 mg Chew Tablet PO (09:36)
[2023-04-21 11:45] LABS: Glucose Point of Care 219 mg/dL (70-110)
[2023-04-21] MEDS: insulin lispro 100 unit/1 mL SUBCUT ×3 (12:01→20:48)
[2023-04-21 12:18] LABS: Add Urine Microscopic? NO; Charge for UA Resulting for Rev
[2023-04-21 12:23] LABS: Bilirubin Urine Neg (Negative); Blood Urine Neg (Negative); Glucose Urine UA 4+ (Normal); Ketones Urine 1+ (Negative); Leukocyte Esterase Urine Negative (Negative); Nitrate Urine Negative (Negative); Protein Urine Neg (Negative); Urine Appearance Clear (CLEAR); Urine Color Yellow (Yellow); Urobilinogen Urine Norm (Negative); pH Urine 5 (5-7)
[2023-04-21 12:39] LABS: Partial Thromboplastin Time 51.2 SECONDS (23.9-36.7)
[2023-04-21] MEDS: metoprolol succinate ER (24 HR) 25 mg Tablet PO (15:55)
[2023-04-21 16:38] LABS: Glucose Point of Care 205 mg/dL (70-110)
[2023-04-21 19:40] LABS: Partial Thromboplastin Time 51.5 SECONDS (23.9-36.7)
[2023-04-21 20:15] LABS: Glucose Point of Care 175 mg/dL (70-110)
[2023-04-21] MEDS: atorvastatin 40 mg Tablet PO (20:47)
[2023-04-22] VITALS (10 sets, daily range): BP systolic 114–140; BP diastolic 67–80; PULSE 73–95; RESP 17–19; TEMP 36.6–37.2; O2SAT 92–94
[2023-04-22] MEDS: heparin drip 25,000 UNIT/500 ML PREMIX 26 UNIT IV (03:04)
[2023-04-22 03:57] LABS: Basophils # 0.1 10^3/uL (0.0-0.1); Basophils % 1.1 %; Eosinophils # 0.2 10^3/uL (0.0-0.8); Eosinophils % 2.7 %; Hematocrit 47.3 % (37-53); Lymphocytes # 2.6 10^3/uL (0.8-4.8); Lymphocytes % 31.7 %; Mean Corpuscular HGB Conc 33.2 g/dL (30-55); Mean Corpuscular Hemoglobin 27.9 pg (27-33); Mean Corpuscular Volume 84.2 fl (82-101); Mean Platelet Volume 10.7 fL (7.4-10.4); Monocytes # 1.2 10^3/uL (0.2-0.9); Monocytes % 14.8 %; Neutrophils # 4.05 10^3/uL (1.8-7.7); Neutrophils % 49.5 %; Nucleated Red Blood Cells % 0 %; Platelet Count 231 10^3/cmm (157-399); Red Blood Count 5.62 10^6/uL (3.85-5.65); Red Cell Distribution Width 14.4 % (12.1-15.1); White Blood Count 8.18 10^3/uL (3.29-11.43)
[2023-04-22 04:11] LABS: Partial Thromboplastin Time 31.9 SECONDS (23.9-36.7)
[2023-04-22 04:20] LABS: Alanine Aminotransferase 17 U/L (0-41); Albumin Level 3.6 g/dL (3.5-5.2); Alkaline Phosphatase 70 U/L (40-130); Aspartate Amino Transferase 17 U/L (0-40); Blood Urea Nitrogen 14 mg/dL (6-20); Calcium 8.6 mg/dL (8.5-10.5); Carbon Dioxide 21 mmol/L (22-29); Chloride 100 mmol/L (98-107); Globulin 3.1 g/dL (1.3-4.6); Glomerular Filtration Rate 138.4 mL/min (90-130); Glucose 197 mg/dL (65-115); Osmolality Calculated 276 mOsm/kg (285-295); Sodium 130 mmol/L (136-145); Total Bilirubin 0.4 mg/dL (0.15-1.2); Total Protein 6.7 g/dL (6.6-8.7)
[2023-04-22 04:25] LABS: Magnesium 2.1 mg/dL (1.7-2.3)
[2023-04-22 04:34] LABS: Folate Level 6.6 ng/mL (4.5-32.2)
[2023-04-22] MEDS: heparin 5,000 unit/mL INJ 1 mL IV (05:23)
[2023-04-22] MEDS: nitroglycerin 1 gm/inch oint Pkt 0.5 INCH TOPICAL ×3 (05:23→17:37)
[2023-04-22 06:44] LABS: Glucose Point of Care 181 mg/dL (70-110)
[2023-04-22] MEDS: insulin lispro 100 unit/1 mL SUBCUT ×4 (08:49→21:50)
[2023-04-22] MEDS: aspirin 81 mg Chew Tablet PO (08:49)
[2023-04-22] MEDS: pantoprazole DR 40 mg Tablet PO (08:49)
[2023-04-22] MEDS: metoprolol succinate ER (24 HR) 25 mg Tablet PO (08:49)
--- NOTE | 2023-04-22 09:33 | PM.PN ---
Subjective Subjective: Patient is alert awake slept well without any chest pain or shortness of breath. Vitals/I&O/Wt Last Vital Signs Temp 97.8 F 04/22/23 03:05 Pulse 73 04/22/23 06:00 Resp 17 04/22/23 03:05 BP 114/68 04/22/23 03:05 Pulse Ox 94 04/22/23 09:16 O2 Del Method Nasal Cannula 04/22/23 09:16 04/21/23 04/22/23 04/22/23 22:59 06:59 14:59 Intake Total 549.6 / 932.6 222.3 / 1154.9 Output Total 900 / 1600 1550 / 3150 Balance -350.4 / -667.4 -1327.7 / -1995.1 Weight last 48 hrs Weight 178 lb 4.8 oz Weight 177 lb Weight 177 lb 8 oz Weight 177 lb 8 oz Weight 182 lb Physical Exam Const: COMMON NORMALS: no acute distress, patient oriented x3, no limitations, alert and well nourished HENMT: COMMON NORMALS: normocephalic, atraumatic, hearing grossly normal bilaterally and gingiva normal HEAD & SCALP: normocephalic and atraumatic Eye: COMMON NORMALS: Equal, round and reactive pupils present and EOMs intact bilaterally GENERAL EYE: appearance normal, both eyes and all related structures PUPIL: Yes Equal, round and reactive pupils present Neck/C-Spine: COMMON NORMALS: no JVD GENERAL: Yes normal visual inspection CAROTIDS: Yes normal carotid upstroke Chest: COMMONS NORMALS: normal inspection of the chest CHEST: Yes Symmetrical chest wall rise Resp: COMMON NORMALS: normal respiratory effort, No retractions, clear to auscultation bilaterally and percussion normal EFFORT & INSPECTION: Yes symmetric chest movement AUSCULTATION: clear to auscultation bilaterally PERCUSSION: percussion normal Cardio: COMMON NORMALS: no JVD, regular rate, regular rhythm, S1 normal heart sound present, S2 normal heart sound present, No gallops present (Cardio), No clicks present (Cardio), No murmurs present (Cardio) and No rub (Cardio) RATE: regular rate RHYTHM: regular rhythm HEART SOUNDS: S1 normal heart sound present and S2 normal heart sound present GI: COMMON NORMALS: Normal to inspection, nondistended, normoactive bowel sounds present, Soft to palpation and non-tender PALPATION: Yes Soft to palpation : COMMON NORMALS: Yes no CVA tenderness BLADDER/KIDNEY EXAM: Yes no CVA tenderness Back/Pelvis: COMMON NORMALS: no CVA tenderness Extremity: COMMON NORMALS: normal to inspection, full ROM, no joint enlargement, no clubbing, cyanosis or edema, no calf tenderness and no pedal edema Neuro: COMMON NORMALS: patient oriented x3, moves all extremities, no focal motor deficits and no sensory deficits noted SENSORIUM/ORIENTATION: Yes alert GAIT: Yes Normal gait present Psych: COMMON NORMALS: mental status grossly normal APPEARANCE: Yes grossly normal Skin: COMMON NORMALS: no rashes or lesions noted GENERAL SKIN EXAM: no rashes or lesions noted Data 04/22/23 03:17 04/22/23 03:17 A&P Assessment and plan (1) NSTEMI (non-ST elevated myocardial infarction): Plan for cardiac cath in a.m. echocardiogram pending . Will continue aspirin Imdur and beta-zarina . Risk and benefits of the procedure were explained to the patient agreeable to proceed. Patient to be n.p.o. after midnight hold heparin 7:00 in the morning (2) Hypertension: Adequately controlled (3) Hyperlipidemia: On statin LDL goal less than 70 Qualifiers: Hyperlipidemia type: mixed hyperlipidemia Qualified Code(s): E78.2 - Mixed hyperlipidemia (4) History of DVT of lower extremity: Patient is off Xarelto started on IV heparin. Attestations Medical Necessity Statement*: Disposition after his cardiac cath results tomorrow Coding Level of Care Code Acute Code for [facility] Diagnoses NSTEMI (non-ST elevated myocardial infarction) I21.4 Hypertension I10 Mixed hyperlipidemia E78.2 Hyperlipidemia type: mixed hyperlipidemia History of DVT of lower extremity Z86.718
--- NOTE | 2023-04-22 10:54 | PC.NURSE ---
Dr. Carmona ordered to have patients heparin drip stopped at 0700 on 04-23-2023.
[2023-04-22 11:49] LABS: Glucose Point of Care 349 mg/dL (70-110)
[2023-04-22 13:13] LABS: Partial Thromboplastin Time 95.2 SECONDS (23.9-36.7)
[2023-04-22 17:10] LABS: Glucose Point of Care 186 mg/dL (70-110)
--- NOTE | 2023-04-22 17:52 | P.PN_ITS ---
Subjective 2 Subjective: Patient is lying in bed, appears comfortable. Denies complaints at this time. Says that his chest pain is improved currently. He has been able to eat and drink well. Medications: Reviewed: Yes Vitals/I&O/Wt Last Vital Signs Temp 98.6 F 04/22/23 17:39 Pulse 79 04/22/23 17:39 Resp 19 H 04/22/23 17:39 BP 126/77 04/22/23 17:39 Pulse Ox 94 04/22/23 17:39 O2 Del Method Room Air 04/22/23 17:39 04/22/23 04/22/23 04/22/23 06:59 14:59 22:59 Intake Total 222.3 / 1154.9 598.333 / 598.333 Output Total 1550 / 3150 1550 / 1550 Balance -1327.7 / -1995.1 -951.667 / -951.667 Weight last 48 hrs Weight 178 lb 4.8 oz Weight 177 lb Weight 177 lb 8 oz Weight 177 lb 8 oz Weight 182 lb Physical Exam 2 Narrative: General: Cooperative patient in no apparent distress. Well developed. HEENT: Normocephalic, Atraumatic. External ears normal. Nasal passages patent without drainage. MMM. Heart: RRR. Resp: LCTA. No respiratory distress, no use of accessory muscles. Abd: Soft, non-tender. Non-distended. Extremities: No edema. Skin: No rash or lesions on exposed areas. Data 04/22/23 03:17 04/22/23 03:17 A&P Assessment and plan (1) NSTEMI (non-ST elevated myocardial infarction): (2) Hypertension: (3) Hyperlipidemia: Qualifiers: Hyperlipidemia type: mixed hyperlipidemia Qualified Code(s): E78.2 - Mixed hyperlipidemia (4) History of DVT of lower extremity: Plan 58-year-old male admitted for NSTEMI. Cardiology is consulted and they are planning for angiogram tomorrow morning. Continue aspirin, Imdur and beta-zarina. NPO after midnight. Chest pain is currently improved. Blood pressure is well-controlled. Continue metoprolol. heparin for VTE ppx. Protonix for GI PPx. Continue high-dose statin with goal LDL of less than 70. Oxygen protocol. Recheck am labs. Code Status: Full IVF: None DVT PPx: Heparin GI PPx: Protonix ABx: None Diet: Carb consistent, n.p.o. at midnight. Discharge plan: Home when appropriate. Attestations 2 Medical Necessity Statement*: Continue inpatient monitoring for cardiac workup, planning for angiogram in the a.m. Coding Level of Care Code Acute Code for Chg Fwd Moderate MDM includes number and complexity of problems actively addressed during encounter, amount and/or complexity of data reviewed/ordered and described risk of complication, morbidity or mortality of management as documented Diagnoses NSTEMI (non-ST elevated myocardial infarction) I21.4 Hypertension I10 Mixed hyperlipidemia E78.2 Hyperlipidemia type: mixed hyperlipidemia History of DVT of lower extremity Z86.718
[2023-04-22] MEDS: atorvastatin 40 mg Tablet PO (20:44)
[2023-04-22 20:53] LABS: Partial Thromboplastin Time 75.5 SECONDS (23.9-36.7)
[2023-04-22 20:54] LABS: INR 0.96 (0.8-1.2)
[2023-04-22 21:10] LABS: Glucose Point of Care 413 mg/dL (70-110)
[2023-04-22] MEDS: heparin drip 25,000 UNIT/500 ML PREMIX 24 UNIT IV (21:18)
[2023-04-23] VITALS (12 sets, daily range): BP systolic 111–134; BP diastolic 65–76; PULSE 68–89; RESP 13–17; TEMP 36.3–36.8; O2SAT 92–96
[2023-04-23] MEDS: nitroglycerin 1 gm/inch oint Pkt 0.5 INCH TOPICAL ×3 (00:32→13:03)
[2023-04-23 04:21] LABS: Basophils # 0.1 10^3/uL (0.0-0.1); Eosinophils # 0.3 10^3/uL (0.0-0.8); Eosinophils % 3.4 %; Hematocrit 47.1 % (37-53); Lymphocytes # 2.3 10^3/uL (0.8-4.8); Lymphocytes % 24.9 %; Mean Corpuscular HGB Conc 33.5 g/dL (30-55); Mean Corpuscular Hemoglobin 28.3 pg (27-33); Mean Corpuscular Volume 84.3 fl (82-101); Mean Platelet Volume 10.3 fL (7.4-10.4); Monocytes # 1.6 10^3/uL (0.2-0.9); Monocytes % 17.2 %; Neutrophils # 4.82 10^3/uL (1.8-7.7); Neutrophils % 53.3 %; Nucleated Red Blood Cells % 0 %; Platelet Count 234 10^3/cmm (157-399); Red Blood Count 5.59 10^6/uL (3.85-5.65); Red Cell Distribution Width 14.1 % (12.1-15.1); White Blood Count 9.06 10^3/uL (3.29-11.43)
[2023-04-23 04:45] LABS: Alanine Aminotransferase 15 U/L (0-41); Albumin Level 3.7 g/dL (3.5-5.2); Alkaline Phosphatase 67 U/L (40-130); Anion Gap 15.4 (5-19); Aspartate Amino Transferase 13 U/L (0-40); Blood Urea Nitrogen 16 mg/dL (6-20); Calcium 9.3 mg/dL (8.5-10.5); Carbon Dioxide 22 mmol/L (22-29); Chloride 102 mmol/L (98-107); Globulin 3.2 g/dL (1.3-4.6); Glomerular Filtration Rate 115.8 mL/min (90-130); Glucose 183 mg/dL (65-115); Osmolality Calculated 286 mOsm/kg (285-295); Partial Thromboplastin Time 78.9 SECONDS (23.9-36.7); Potassium 4.4 mmol/L (3.5-5.1); Sodium 135 mmol/L (136-145); Total Bilirubin 0.6 mg/dL (0.15-1.2); Total Protein 6.9 g/dL (6.6-8.7)
[2023-04-23 05:30] LABS: Glucose Point of Care 172 mg/dL (70-110)
--- NOTE | 2023-04-23 07:27 | XACV_ITS ---
Exam Room: [facility] Ht: 175 cm Wt: 81 kg BSA: 2.00 m2 Gender: Male : 1965 Any Known Allergies: No known allergies Exam Priority: Routine Procedure(s): Procedure Description: Diagnostic procedure Procedure Description: PCI procedure Procedure Description: Left Heart Catheterization Procedure Description: Coronary IVUS Procedure Description: Drug Eluting Coronary Stent Procedure Description: PTCA Procedure Description: Coronary Atherectomy Procedure Description: Miscellaneous Procedure Description: ACT Procedure Description: Coronary Angiography Diagnostic Cath Status: Urgent Diagnostic Findings * Left Anterior Descending has mild luminal irregularities. * Circumflex has mild luminal irregularities.. * Proximal Right Coronary Artery: Critical 99%, heavily calcified stenosis.. * Left Main has no disease. * Coronary angiography shows right dominance. PCI Status: Urgent PCI Indication: NSTE - ACS Interventional Findings * Proximal Right Coronary Artery: 99% stenosis treated with a MDT NC EUPHORA RX [id number] BALLOON, [place] 4.0mm X 30mm, and MDT NC EUPHORA RX [id number] BALLOON. 0% residual stenosis, JENNIFER: 3 flow. * Procedure detail: We engaged the RCA with JR4 guide catheter. IV heparin was administered to maintain anticoagulation. 0.014 run-through guidewire was used to cross the critical proximal RCA stenosis and was put in the distal vessel. We attempted to perform IVUS however it was not crossable lesion. It showed heavy calcification at proximal edge of the lesion. We then crossed the lesion with a Viper wire. This was followed by several runs of orbital arthrectomy to modify the lesion. We then switched the Viper wire to run-through wire through microcatheter. We now predilated the stenosis with 4.0 x 15 mm NC balloon. This was followed by placement of 4.0 x 30 mm resolute [place]ering[place] drug-eluting stent. For NC balloon advancement, we needed more support and the guide was switched to AL 0.75. We postdilated the stent with 4.5 x 8 mm NC balloon. At this time final angiogram was performed that showed excellent stent expansion, no residual stenosis and JENNIFER-3 flow. Guidewire and guide catheter were removed. Patient left the [employer] in a stable condition.. Conclusions 1. Critical, heavily calcified proximal RCA stenosis s/p successful revascularization with orbital arthrectomy and 1 stent.. 2. Proximal Right Coronary Artery was treated with a Balloon, Stent, and Balloon. Recommendations * Plavix for at least 1 year. Continue Xarelto. * High intensity statin therapy. * Aggressive risk factor modification. * Outpatient cardiology follow-up in 2 weeks. Interventional RX Recommendation: PCI w/o planned CABG Diagnostic RX Recommendation: PCI w/o planned CABG Anticoagulation: Heparin Pressures Phase:Rest AO : 102 / 62 ( 73 ) @ 8:46:00 AM 126 / 72 ( 91 ) @ 8:52:00 AM 126 / 72 ( 91 ) @ 8:52:00 AM 133 / 74 ( 92 ) @ 8:54:00 AM 111 / 87 ( 99 ) @ 9:18:00 AM 97 / 70 ( 83 ) @ 9:27:00 AM 112 / 70 ( 87 ) @ 9:51:00 AM LV : 137 / -14 / 13 @ 8:51:00 AM 141 / -14 / 10 @ 8:52:00 AM Valves Phase:DefaultPhase AV : 16.0 @ 10:19:59 AM AV Mean Gradient: 16.0 @ 10:19:59 AM 16.0 @ 10:19:59 AM Clinical Evaluation EBL: 5mL-10mL Procedural Details Procedure Consent Obtained. Admit Source: In Patient. Pre-Procedure Time Out. Identified patient by full name and date of as verbalized by the patient/guarantor. Does the consent match the physician's order: Yes. Accurate & Complete Informed Consent: Yes. Inpatient/Outpatient History & Physical on Chart: Yes. If H&P is completed, is and addenduem needed: No; If yes, is the addendum complete: N/A. Visualize and Verify Site with Patient/Guarantor: N/A. Relevant Radiology Images available: N/A. The risks, benefits, and alternatives of sedation and/or procedure were discussed by physician. The patient agrees to continue. Procedure started. [facility] Clinical Fraility Score: 3: Managing Well. [employer] Indications: ACS > 24 hours. Chest Pain Symptom Assessment: Typical Angina Symptoms. Correct patient, site and procedure confirmed by cath team. Current diagnosis: NSTEMI. PERRLA. 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 Lungs clear x 5 lobes. IV Site on Arrival: 20 gauge in the right anticubital. IV Fluids: 0.9% NaCl at 75ml/hr. 0 mL infused prior to prosthetic lab technician. Pre Procedural Pulses: bilateral dorsalis pedis was 3+. Pre Procedural Pulses: bilateral posterior tibial was 2+. Pre Procedural Pulses: bilateral radial was 3+. Oxygen started at 2liters/min via nasal canula. right radial was prepped with chloroprep then draped in the usual sterile fashion. right groin was prepped with chloroprep then draped in the usual sterile fashion. Physician notified. Baseline sample Acquired. HR: 87 BPM. Physician arrived. Physician scrubbed in. Immediate Pre-Procedure Time Out. Correct Patient: Yes; Correct Procedure: Yes; Correct Site: Yes; Correct Patient Position: Yes; Correct Supplies: Yes; Dried Flammable Prep: Yes; Blood Products Available: No;. Lidocaine 1% infiltrated to the right radial. Arterial access obtained. A 5 fijian TIG catheter in over wire. Multiple views taken of left coronary artery. Catheter redirected to the RCA. Multiple views taken of right coronary artery. EDP Sample taken: LV 137/-15,13; HR: 117 BPM; SpO2: 97%. Pullback taken: LV 141/-14,10; AO 126/72(91); Mean: 16mmHg, Peak to Peak: 16mmHg, SEP: 10sec/min; HR: 119 BPM; SpO2: 96%. Catheter removed over the exchange wire. PCI Indication: NSTE. 6 fijian JR 4 guide catheter was inserted over the wire. ACT drawn. Results 235 seconds. Therapeutic limits - pre-heparin administration 90-150 seconds and monitoring heparin during a vascular procedure >250 seconds. Guide catheter out. 6 fijian HS guide catheter was inserted over the wire. Runthrough guidewire was advanced through the guide catheter to lesion in the prox RCA. Patient's family updated. Guidewire advanced across lesion. IVUS catheter in over runthrough wire. IVUS run performed of proximal RCA. IVUS catheter out over runthrough wire. Viperguidewire advanced acrossed lesion. Coronary viperwire in through guide catheter to lesion in RCA. AP pads applied. Runthrough wire out. Coronary orbital atherectomy device advanced over viperwire to lesion in proximal RCA. Atherectomy performed of proximal RCA. Atherectomy performed of proximal RCA. Atherectomy performed of proximal RCA. Atherectomy performed of proximal RCA. Atherectomy performed of proximal RCA. Atherectomy performed of proximal RCA. Atherectomy device out over viperwire. Teleport catheter in over viperwire. Viper wire out. 300cm runthrough wire in through guide catheter. Teleport catheter out. Balloon inserted to lesion in the prox RCA. Inflation number : 1 A MDT NC EUPHORA RX [id number] BALLOON was prepped and advanced across the Prox RCA , then inflated to 12 MANI for 0:16 seconds. Inflation number: 2 The MDT NC EUPHORA RX [id number] BALLOON was reinflated across the Prox RCA, to 12 MANI for 0:14 seconds. Inflation number: 3 The MDT NC EUPHORA RX [id number] BALLOON was reinflated across the Prox RCA, to 12 MANI for 0:11 seconds. Balloon out. Stent inserted to lesion in the prox RCA. Inflation Number : 4 A [place] TREMAINE 4.0mm X 30mm -Lot Number# [id number] prepped and advanced across the Prox RCA. The stent was deployed at 12 MANI for 0:21 seconds. Stent balloon out over wire. 5.0mm X 12mm NC Balloon inserted to lesion in the prox RCA. Unable to cross , balloon out over wire. 6f Guideliner support catheter in over runthrough wire. Balloon inserted to lesion in the prox RCA. Patient's family updated. Balloon unable to cross, poor guide catheter support. Undeployed 4.5mm X 8mm NC balloon, runthrough , and guideliner out. ACT drawn. Results 337 seconds. Therapeutic limits - pre-heparin administration 90-150 seconds and monitoring heparin during a vascular procedure >250 seconds. Guide catheter out over exchange wire. 6 fijian AL 0.75 guide catheter was inserted over the wire. 180cm Runthrough guidewire was advanced through the guide catheter to lesion in the prox RCA. Balloon inserted to lesion in the prox RCA. Unable to cross lesion. Undeployed 4.5mm x 8mm NC balloon out over runthrough. 300cm runthrough in through guidecatheter , advanced acrossed lesion in prox RCA. Balloon in over 180cm runthrough wire to lesion in prox RCA. Unable to cross. Undeployed balloon out over wire. 300 cm runthrough out. 6fr Guideliner catheter in over 180cm runthrough wire. Balloon inserted to lesion in the prox RCA. Inflation number : 5 A MDT NC EUPHORA RX [id number] BALLOON was prepped and advanced across the Prox RCA , then inflated to 20 MANI for 0:10 seconds. Balloon out. Guideliner out over wire. Results checked. Runthrough out. ACT drawn. Results 263 seconds. Therapeutic limits - pre-heparin administration 90-150 seconds and monitoring heparin during a vascular procedure >250 seconds. Guide catheter out over exchange wire. Wire out. PERRLA. 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 No VTE prophylaxis required. Medication's Wasted: Lidocaine 1% = 18 mL. Medication's Wasted: Nitro = 49.8 mg. Medication's Wasted: Other = Versed 1 mg. Medication's Wasted: Heparin = 1000 unit. Total IV fluids: 344 mL. A TR Band was successful obtaining hemostatsis at the Right Radial artery insertion site. Post-op diagnosis: Critical prox RCA stenosis, s/p PCI with orbital atherectomy placement of 1 stent. Complications: None. Estimated blood loss: 5mL-10mL. Responsiveness - Normal response to verbal stimuli; alert and oriented, PERRLA. Airway - Unaffected, no intervention required; spontaneous ventilation. Circulation: W/N/L, pulses unchanged. Nausea/Vomiting: No. Post Procedure: Pulses reassessed and unchanged. Procedure completed. Patient transferred by bed to 1st floor. Vital chart was stopped. Access Site Site: Right Radial artery Sheath Size: 6 Fr Hemostasis Method: TR Band Hemostasis Success: Successful Procedure Medications Start: 8:38 AM Stop: 8:38 AM Medication: Versed Amount: 1 mg Route: I.V. Start: 8:38 AM Stop: 8:38 AM Medication: Fentanyl Amount: 25 mcg Route: I.V. Start: 8:42 AM Stop: 8:42 AM Medication: Versed 1 mg and Fentanyl 25 mcg Amount: 1 Route: I.V. Start: 8:45 AM Stop: 8:45 AM Medication: Nitrogylcerin Amount: 200 mcg Route: I.A. Start: 8:46 AM Stop: 8:46 AM Medication: Heparin Amount: 5000 units Route: I.V. Start: 8:59 AM Stop: 8:59 AM Medication: Heparin Amount: 2000 units Route: I.V. Start: 9:15 AM Stop: 9:15 AM Medication: Heparin Amount: 2000 units Route: I.V. Start: 9:18 AM Stop: 9:18 AM Medication: Versed Amount: 1 mg Route: I.V. Start: 9:28 AM Stop: 9:28 AM Medication: Heparin Amount: 1000 units Route: I.V. Start: 9:31 AM Stop: 9:31 AM Medication: 0.9% Saline Amount: 250 ml Route: I.V. bolus Start: 9:39 AM Stop: 9:39 AM Medication: Versed 1 mg and Fentanyl 25 mcg Amount: 1 Route: I.V. Start: 9:52 AM Stop: 9:52 AM Medication: Versed 1 mg and Fentanyl 25 mcg Amount: 1 Route: I.V. Start: 10:08 AM Stop: 10:08 AM Medication: Plavix Amount: 600 mg Route: P.O. Start: 10:08 AM Stop: 10:08 AM Medication: Aspirin Amount: 325 mg Route: P.O. Start: 10:10 AM Stop: 10:10 AM Medication: Aggrastat 12.5 mg/250 mL Amount: 40 ml Route: I.V. bolus Start: 10:11 AM Stop: 10:11 AM Medication: Aggrastat 12.5 mg/250 mL Amount: 14.4 ml/hr Route: I.V. patel Martinez, the attending physician, have reviewed and verified all procedure medications. Yes, all medications given per verbal order History/Risk Factors Hypertension: Yes Dyslipidemia: Yes Peripheral Arterial Disease (PAD): No Myocardial Infarction (UT): No Obesity: No Renal Disease: No Prior Interventions PCI: No CABG: No Valve Surgery: No Report Signatures Finalized by Josh Lee MD on 04/24/2023 11:26 AM
--- NOTE | 2023-04-23 08:17 | W.PM.OPSUD ---
Surgery/Procedure H&P Update DATE OF PROCEDURE: April 23, 2023 DATE H&P PERFORMED: 04/21/23 H&P UPDATE INFORMATION: I have reviewed H&P completed within last 30 days, I have examined patient prior to procedure and No changes to prior documentation PREOP DIAGNOSIS: NSTEMI PRIMARY INDICATION FOR PROCEDURE: NSTEMI PLANNED PROCEDURE: Left heart cath with possible percutaneous coronary intervention PATIENT REASSESSED PRIOR TO SEDATION, WITH NO CHANGE NOTED: Yes PHYSICAL EXAM: alert, oriented x 3, clear to auscultation bilaterally and regular rate & rhythm AIRWAY EVAL/ANESTHESIA PLAN: normal airway, ASA III, Local Anesthesia, Risks, benefits & alternatives of sedation and/or procedure discussed and Patient agrees to continue as planned
--- NOTE | 2023-04-23 08:24 | P.PN_ITS ---
Subjective 2 Subjective: Patient underwent coronary angiogram today that showed critical, heavily calcified 99% proximal RCA stenosis. He had successful revascularization orbital arthrectomy with 1 stent. He denies chest pain. Vitals/I&O/Wt Last Vital Signs Temp 98.2 F 04/23/23 04:00 Pulse 89 04/23/23 07:43 Resp 17 04/23/23 04:00 BP 120/70 04/23/23 04:00 Pulse Ox 93 04/23/23 07:43 O2 Del Method Room Air 04/23/23 07:43 04/22/23 04/23/23 04/23/23 22:59 06:59 14:59 Intake Total 400.567 / 998.900 195.6 / 1194.500 35.567 / 35.567 Output Total 450 / 2000 700 / 2700 Balance -49.433 / -1001.100 -504.4 / -1505.500 35.567 / 35.567 Weight last 48 hrs Weight 178 lb Weight 178 lb 4.8 oz Physical Exam 2 Narrative: GENERAL: Patient is alert, awake and oriented x3. [] NECK: No jugular vein distension. [] HEENT: No cyanosis. No icterus. No pallor. [] HEART: Regular S1 and S2. No murmur, rub or gallop. [] LUNGS: Clear to auscultate bilaterally. [] CENTRAL NERVOUS SYSTEM: Grossly nonfocal. [] EXTREMITIES: Lower extremities with 1+ edema bilaterally Data 04/23/23 03:39 04/23/23 03:39 A&P Assessment and plan (1) NSTEMI (non-ST elevated myocardial infarction): Patient is overall doing well. He had successful revascularization of critical proximal RCA stenosis with orbital arthrectomy and 1 stent. Continue aspirin and Plavix. Will resume Xarelto in the evening. (2) Hypertension: Controlled. (3) Hyperlipidemia: Continue statin therapy Qualifiers: Hyperlipidemia type: mixed hyperlipidemia Qualified Code(s): E78.2 - Mixed hyperlipidemia (4) History of DVT of lower extremity: We will resume Xarelto in the PM Plan Thank you for involving us with care of this patient. We will continue to follow. Please call with questions. Attestations 2 Medical Necessity Statement*: Care expected to cross 2 midnights. Coding Level of Care Code Acute Code for Chg Fwd Diagnoses NSTEMI (non-ST elevated myocardial infarction) I21.4 Hypertension I10 Mixed hyperlipidemia E78.2 Hyperlipidemia type: mixed hyperlipidemia History of DVT of lower extremity Z86.718
[2023-04-23 08:31] LABS: Iron 47 ug/dL (59-158); Percent Saturation 13.2 % (20-50); Total Iron Binding Capacity 355 mcg/dl; Unsaturated Iron Binding 308 ug/dL (112-347)
--- NOTE | 2023-04-23 10:12 | PC.NURSE ---
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
[2023-04-23] MEDS: pantoprazole DR 40 mg Tablet PO (11:13)
[2023-04-23] MEDS: metoprolol succinate ER (24 HR) 25 mg Tablet PO (11:14)
[2023-04-23] MEDS: acetaminophen 325 mg Tablet 650 MG PO ×2 (11:16→18:08)
[2023-04-23] MEDS: sodium chloride 0.9% 1,000 ML 100 ML IV (11:18)
[2023-04-23 11:27] LABS: Glucose Point of Care 277 mg/dL (70-110)
--- NOTE | 2023-04-23 11:58 | P.PN_ITS ---
Subjective 2 Subjective: Seen this morning. Going for angiogram today. Vitals/I&O/Wt Last Vital Signs Temp 97.4 F L 04/23/23 11:32 Pulse 74 04/23/23 11:32 Resp 13 04/23/23 11:32 BP 126/75 04/23/23 11:52 Pulse Ox 96 04/23/23 11:32 O2 Del Method Room Air 04/23/23 11:32 04/22/23 04/23/23 04/23/23 22:59 06:59 14:59 Intake Total 400.567 / 998.900 195.6 / 1194.500 35.567 / 35.567 Output Total 450 / 2000 700 / 2700 Balance -49.433 / -1001.100 -504.4 / -1505.500 35.567 / 35.567 Weight last 48 hrs Weight 80.739 kg Weight 80.876 kg Physical Exam 2 Narrative: General: Cooperative patient in no apparent distress. HEENT: Normocephalic, Atraumatic. Heart: RRR. Normal S1-S2 Resp: LCTA. No respiratory distress, no use of accessory muscles. Abd: Soft, non-tender. Non-distended. Extremities: No edema. Data 04/23/23 03:39 04/23/23 03:39 A&P Assessment and plan (1) NSTEMI (non-ST elevated myocardial infarction): (2) Hypertension: (3) Hyperlipidemia: Qualifiers: Hyperlipidemia type: mixed hyperlipidemia Qualified Code(s): E78.2 - Mixed hyperlipidemia (4) History of DVT of lower extremity: Plan 58-year-old male admitted for NSTEMI. #NSTEMI #Hypertension #Diabetes mellitus #History of DVT, PE currently on Xarelto ? Came in with chest pain radiating to middle of chest and into left arm. ? Baseline troponin 249, 2-hour delta at 37. ? Received aspirin in ER and Plavix 300 ? Typically takes Xarelto for PE. Last dose taken 8 PM on March 20, 2023. ? CTA negative for PE or dissection ? Continue heparin drip ? Echo cardiogram shows normal LV function with no significant valvular disease ? Protonix for GI prophylaxis ? Continue aspirin, Plavix, atorvastatin, beta-zarina. ? Plan for angiogram today ? Xarelto being held at this time. ? Plan to restart Xarelto in a.m. tomorrow after procedure today. ? Insulin sliding scale moderate dose intensity ? Hold glipizide, metformin, Sitagliptin, Jardiance ? Continue lisinopril Code Status: Full IVF: None DVT PPx: Heparin GI PPx: Protonix ABx: None Diet: Carb consistent, however n.p.o. for now since last midnight. Discharge plan: Home when appropriate. Attestations 2 Medical Necessity Statement*: Patient going for an angiogram today. Diagnoses NSTEMI (non-ST elevated myocardial infarction) I21.4 Hypertension I10 Mixed hyperlipidemia E78.2 Hyperlipidemia type: mixed hyperlipidemia History of DVT of lower extremity Z86.718
[2023-04-23] MEDS: insulin lispro 100 unit/1 mL SUBCUT ×3 (13:02→21:58)
--- NOTE | 2023-04-23 13:04 | PC.NURSE ---
aggrastat drip is off per doctor's order
[2023-04-23 17:02] LABS: Glucose Point of Care 273 mg/dL (70-110)
[2023-04-23] MEDS: rivaroxaban 10 mg Tablet 20 MG PO (20:28)
[2023-04-23] MEDS: atorvastatin 40 mg Tablet PO (20:28)
[2023-04-23 21:51] LABS: Glucose Point of Care 310 mg/dL (70-110)
[2023-04-24] VITALS (7 sets, daily range): BP systolic 120–124; BP diastolic 60–80; PULSE 69–86; RESP 17–20; TEMP 36.6–37.2; O2SAT 94–98
[2023-04-24 04:39] LABS: Basophils # 0.1 10^3/uL (0.0-0.1); Eosinophils # 0.3 10^3/uL (0.0-0.8); Eosinophils % 3.9 %; Lymphocytes # 2.3 10^3/uL (0.8-4.8); Lymphocytes % 26.6 %; Mean Corpuscular HGB Conc 33.5 g/dL (30-55); Mean Corpuscular Hemoglobin 28.3 pg (27-33); Mean Corpuscular Volume 84.6 fl (82-101); Mean Platelet Volume 10.3 fL (7.4-10.4); Monocytes # 1.2 10^3/uL (0.2-0.9); Neutrophils # 4.77 10^3/uL (1.8-7.7); Neutrophils % 54.3 %; Nucleated Red Blood Cells % 0 %; Platelet Count 225 10^3/cmm (157-399); Red Blood Count 5.44 10^6/uL (3.85-5.65); Red Cell Distribution Width 14.3 % (12.1-15.1); White Blood Count 8.79 10^3/uL (3.29-11.43)
[2023-04-24 05:05] LABS: Magnesium 1.9 mg/dL (1.7-2.3)
[2023-04-24 05:50] LABS: Anion Gap 16.1 (5-19); Blood Urea Nitrogen 16 mg/dL (6-20); Calcium 8.5 mg/dL (8.5-10.5); Carbon Dioxide 20 mmol/L (22-29); Chloride 102 mmol/L (98-107); Glomerular Filtration Rate 138.4 mL/min (90-130); Glucose 156 mg/dL (65-115); Osmolality Calculated 282 mOsm/kg (285-295); Potassium 4.1 mmol/L (3.5-5.1); Sodium 134 mmol/L (136-145)
[2023-04-24 06:43] LABS: Glucose Point of Care 178 mg/dL (70-110)
[2023-04-24] MEDS: pantoprazole DR 40 mg Tablet PO (08:17)
[2023-04-24] MEDS: aspirin 81 mg Chew Tablet PO (08:17)
[2023-04-24] MEDS: clopidogrel 75 mg Tablet PO (08:17)
[2023-04-24] MEDS: metoprolol succinate ER (24 HR) 25 mg Tablet PO (08:17)
[2023-04-24] MEDS: insulin lispro 100 unit/1 mL SUBCUT ×2 (08:24→12:58)
--- NOTE | 2023-04-24 08:24 | P.PN_ITS ---
Subjective 2 Subjective: Patient is doing well. no chest pain. Vitals/I&O/Wt Last Vital Signs Temp 97.9 F 04/24/23 03:28 Pulse 77 04/24/23 06:00 Resp 20 H 04/24/23 03:28 BP 124/71 04/24/23 03:28 Pulse Ox 96 04/24/23 03:28 O2 Del Method Room Air 04/24/23 03:28 04/23/23 04/24/23 04/24/23 22:59 06:59 14:59 Intake Total 1236 / 2159.567 300 / 2459.567 Output Total 1250 / 2150 500 / 2650 Balance -14 / 9.567 -200 / -190.433 Weight last 48 hrs Weight 186 lb 11.2 oz Weight 178 lb Physical Exam 2 Narrative: GENERAL: Patient is alert, awake and oriented x3. [] NECK: No jugular vein distension. [] HEENT: No cyanosis. No icterus. No pallor. [] HEART: Regular S1 and S2. No murmur, rub or gallop. [] LUNGS: Clear to auscultate bilaterally. [] CENTRAL NERVOUS SYSTEM: Grossly nonfocal. [] EXTREMITIES: Lower extremities with 1+ edema bilaterally Data 04/24/23 04:07 04/24/23 04:07 A&P Assessment and plan (1) NSTEMI (non-ST elevated myocardial infarction): Patient is doing well. Had PCI of RCA yesterday. Continue plavix and Xarelto (2) Hypertension: Controlled. (3) Hyperlipidemia: Continue statin therapy Qualifiers: Hyperlipidemia type: mixed hyperlipidemia Qualified Code(s): E78.2 - Mixed hyperlipidemia (4) History of DVT of lower extremity: Continue Xarelto Plan Thank you for involving us with care of this patient. Patient is stable to be discharged from cardiology standpoint. Please call with questions. Attestations 2 Medical Necessity Statement*: Care expected to cross 2 midnights. Coding Level of Care Code Acute Code for g Fwd Diagnoses NSTEMI (non-ST elevated myocardial infarction) I21.4 Hypertension I10 Mixed hyperlipidemia E78.2 Hyperlipidemia type: mixed hyperlipidemia History of DVT of lower extremity Z86.718
--- NOTE | 2023-04-24 11:19 | PM.DCS ---
Discharge Providers Date of Admission: 04/21/23 02:39 Date of Discharge: April 24, 2023 Attending Provider at Admission: Elysia Mc MD Attending Provider at Discharge: Diana Mclaughlin MD Primary Care Provider: Meg De León MD Diagnoses at Discharge Discharge Diagnosis (1) NSTEMI (non-ST elevated myocardial infarction): Status: Acute (2) Hypertension: Status: Chronic (3) Hyperlipidemia: Status: Chronic Qualifiers: Hyperlipidemia type: mixed hyperlipidemia Qualified Code(s): E78.2 - Mixed hyperlipidemia (4) History of DVT of lower extremity: Status: Chronic Reason for Visit Reason for Visit: Shoulder pain down arm Brief History: Braeden Cuellar is a 58 year old male with a past medical history of diabetes mellitus, hypertension, history of DVT and PE x2 currently on Xarelto , presenting to the hospital today with chest discomfort. Patient estimates the discomfort started approximately 4 days ago. States that the pain started around the right shoulder, radiated into middle of the chest and then into the left arm all the way down to the hand. Pain has been intermittent. It has never completely resolved, does tend to wax and pain when. No apparent exacerbating or relieving factors. Not worsened with exercise. Denies any other symptoms such as cough palpitations syncope. Denies any fever. No missed doses of Xarelto. Typically takes the medication and at night, last dose taken on May 21 at 8 PM. Hospital Course Hospital Course .Patient presented with chest pain. Ruled in for NSTEMI. Underwent cardiac angiogram and underwent PCI. Final cath report is pending at this time. Patient stable for discharge home today. He is to follow-up with cardiology outpatient. Educated patient on importance of coming back to the hospital if he experiences any chest pain shortness of breath, and the importance of compliance to medical therapy . Patient and verbalized understanding. he may resume metformin in 48 hours. he is to be on plavix and xarelto. Physical Exam Narrative: General: Cooperative patient in no apparent distress. HEENT: Normocephalic, Atraumatic. Heart: RRR. Normal S1-S2 Resp: LCTA. No respiratory distress, no use of accessory muscles. Abd: Soft, non-tender. Non-distended. Extremities: No edema. Discharge Data Studies Completed and Pending Completed Studies During Hospitalization Category Date Time Status CT angio chest PE protcl [id number] Stat Cat Scan 04/21/23 00:25 Completed XR chest 1V [id number] Stat Exams 04/20/23 23:59 Completed CV. echo complete* [id number] Routine Ultrasound 04/21/23 06:04 Completed Pending at discharge Category Date Time Status [employer] request for service Routine Exams 04/23/23 07:27 Taken Platelet Count Q2D Lab 04/25/23 04:00 Ordered Radiology Impressions Chest X-Ray 04/20/23 23:59 IMPRESSION: No acute findings. Chest CTA 04/21/23 00:25 IMPRESSION: 1. Negative for pulmonary embolus 2. Scattered subcentimeter short axis nonspecific mediastinal lymph nodes. 3. Ascending thoracic aorta dilated at 3.6 cm. 4. Left kidney cyst, negative for follow-up advised. Laboratory Results WBC 8.79 10^3/uL (3.29-11.43) 04/24/23 04:07 RBC 5.44 10^6/uL (3.85-5.65) 04/24/23 04:07 Hgb 15.40 g/dL (11.27-16.99) 04/24/23 04:07 Hct 46.0 % (37-53) 04/24/23 04:07 MCV 84.6 fl (82-101) 04/24/23 04:07 MCH 28.3 pg (27-33) 04/24/23 04:07 MCHC 33.5 g/dL (30-55) 04/24/23 04:07 RDW 14.3 % (12.1-15.1) 04/24/23 04:07 Plt Count 225 10^3/cmm (157-399) 04/24/23 04:07 MPV 10.3 fL (7.4-10.4) 04/24/23 04:07 Neut % (Auto) 54.3 % 04/24/23 04:07 Lymph % (Auto) 26.6 % 04/24/23 04:07 [place] % (Auto) 14.0 % 04/24/23 04:07 Eos % (Auto) 3.9 % 04/24/23 04:07 Baso % (Auto) 1.0 % 04/24/23 04:07 Neut # (Auto) 4.77 10^3/uL (1.8-7.7) 04/24/23 04:07 Lymph # (Auto) 2.3 10^3/uL (0.8-4.8) 04/24/23 04:07 [place] # (Auto) 1.2 10^3/uL (0.2-0.9) H 04/24/23 04:07 Eos # (Auto) 0.3 10^3/uL (0.0-0.8) 04/24/23 04:07 Baso # (Auto) 0.1 10^3/uL (0.0-0.1) 04/24/23 04:07 Nucleated RBC % (auto) 0 % 04/24/23 04:07 Nucleated RBCs # 0.0 /100WBC 04/24/23 04:07 PT 13.10 SECONDS (12.1-14.9) 04/22/23 19:57 INR 0.96 (0.8-1.2) 04/22/23 19:57 APTT 78.9 SECONDS (23.9-36.7) H 04/23/23 03:39 Sodium 134 mmol/L (136-145) L 04/24/23 04:07 Potassium 4.1 mmol/L (3.5-5.1) 04/24/23 04:07 Chloride 102 mmol/L (98-107) 04/24/23 04:07 Carbon Dioxide 20 mmol/L (22-29) L 04/24/23 04:07 Anion Gap 16.1 (5-19) 04/24/23 04:07 BUN 16 mg/dL (6-20) 04/24/23 04:07 Creatinine 0.6 mg/dL (0.7-1.2) L 04/24/23 04:07 GFR Calculation 138.4 mL/min (90-130) H 04/24/23 04:07 Glucose 156 mg/dL (65-115) H 04/24/23 04:07 POC Glucose 178 mg/dL (70-110) H 04/24/23 06:23 Calculated Osmolality 282 mOsm/kg (285-295) L 04/24/23 04:07 Calcium 8.5 mg/dL (8.5-10.5) 04/24/23 04:07 Magnesium 1.9 mg/dL (1.7-2.3) 04/24/23 04:07 Iron 47 ug/dL (59-158) L 04/21/23 05:37 TIBC 355 mcg/dl 04/21/23 05:37 % Saturation 13.2 % (20-50) L 04/21/23 05:37 Unsat Iron Binding 308 ug/dL (112-347) 04/21/23 05:37 Total Bilirubin 0.6 mg/dL (0.15-1.2) 04/23/23 03:39 AST 13 U/L (0-40) 04/23/23 03:39 ALT 15 U/L (0-41) 04/23/23 03:39 Alkaline Phosphatase 67 U/L (40-130) 04/23/23 03:39 Troponin T Baseline 249 ng/L (0-15) H* 04/21/23 00:00 Troponin T 120 Minute 286.4 ng/L (0-15) H 04/21/23 01:30 Delta Troponin T 37.4 ABS# (0-10) H* 04/21/23 01:30 Troponin T Hi Sens 6Hr 489.6 ng/L (0-15) H 04/21/23 05:37 Troponin T Hi Sens 6Hr Delta 240.6 ng/L (0-12) H* 04/21/23 05:37 NT-Pro-B Natriuret Pep 1983 pg/mL (0-125) H 04/21/23 00:00 Total Protein 6.9 g/dL (6.6-8.7) 04/23/23 03:39 Albumin 3.7 g/dL (3.5-5.2) 04/23/23 03:39 Globulin 3.2 g/dL (1.3-4.6) 04/23/23 03:39 Folate 6.6 ng/mL (4.5-32.2) 04/22/23 03:17 Urine Color Yellow (Yellow) 04/21/23 12:05 Urine Appearance Clear (CLEAR) 04/21/23 12:05 Urine pH 5 (5-7) 04/21/23 12:05 Ur Specific [place] 1.010 (1.005-1.030) 04/21/23 12:05 Urine Protein Neg (Negative) 04/21/23 12:05 Urine Glucose (UA) 4+ (Normal) H 04/21/23 12:05 Urine Ketones 1+ (Negative) H 04/21/23 12:05 Urine Blood Neg (Negative) 04/21/23 12:05 Urine Nitrate Negative (Negative) 04/21/23 12:05 Urine Bilirubin Neg (Negative) 04/21/23 12:05 Urine Urobilinogen Norm mg/dL (Negative) 04/21/23 12:05 Ur Leukocyte Esterase Negative (Negative) 04/21/23 12:05 Influenza Type A Ag negative (Negative) 04/21/23 00:00 Influenza Type B Ag negative (Negative) 04/21/23 00:00 SARS-CoV-2 Ag (Rapid) Negative (Negative) 04/21/23 00:00 Vitals Last Vital Signs Temp 98.9 F 04/24/23 09:10 Pulse 86 04/24/23 10:59 Resp 17 04/24/23 09:10 BP 122/60 04/24/23 09:10 Pulse Ox 98 04/24/23 10:59 O2 Del Method Room Air 04/24/23 10:59 Discharge Plan Discharge Patient Disposition: Home Condition: Stable Prescriptions: New atorvastatin 40 mg Tablet 40 mg PO BEDTIME Qty: 30 0RF clopidogrel 75 mg Tablet 75 mg PO DAILY Qty: 30 1RF metoprolol succinate 25 mg Tablet Extended Release 24 Hr 25 mg PO DAILY Qty: 30 0RF Continued Xarelto 20 mg tablet 20 mg PO BEDTIME Rx Instructions: must administer with evening meal glipizide 10 mg tablet 10 mg PO BEDTIME Rx Instructions: Take 1 tablet by mouth once daily famotidine 20 mg tablet 20 mg PO BEDTIME Januvia 100 mg tablet 100 mg PO BEDTIME Jardiance 25 mg tablet 25 mg PO BEDTIME Held metformin 500 mg tablet,ER [email or web address] 24 hr 2,000 mg PO BEDTIME Hold Instructions: start 04/25/2023 Discontinued simvastatin 40 mg tablet 40 mg PO BEDTIME lisinopril 10 mg tablet 20 mg PO BEDTIME Rx Instructions: Take one tablet by mouth daily. Discharge Orders: Discharge Order (Routine); Ordered 04/24/23 Ordered By: Diana Mclaughlin Referrals: Josh Lee M.D [Physician] - 1 month (After your appointment with Ketty Padilla, you will be scheduled for an appointment with Dr. Lee within 1 month. ) Meg De León MD [Primary Care Provider] - 04/26/23 7:00 am Ketty Padilla FNP [Nurse Practitioner] - 05/07/23 2:00 pm Discharge Diet: Cardiac and Diabetic Discharge Activity: Limit activity as instructed Patient Instructions: Metoprolol (By mouth) (Lopressor, Toprol XL), Atorvastatin (By mouth) (Lipitor, Atorvaliq), Clopidogrel (By mouth) (Plavix), Pantoprazole (By mouth) (Protonix), Heart Healthy Diet (DC), DASH Eating Plan (DC), Coronary Intravascular Stent Placement (DC), Post Angiogram Home Care Instructions, Post Heart Attack Stoplight, Coronary Angioplasty (DC), Opioid Safety Discharge Attestations Time Spent in Discharge Care*: greater than 30 min Quality Metrics Clinical Quality Measures [ No reported AMI, CVA or VTE this stay] Coding Level of Care Code 55683 Total time (in minutes) for Discharge: 45 Diagnoses NSTEMI (non-ST elevated myocardial infarction) I21.4 Hypertension I10 Mixed hyperlipidemia E78.2 Hyperlipidemia type: mixed hyperlipidemia History of DVT of lower extremity Z86.718
[2023-04-24 12:22] LABS: Glucose Point of Care 237 mg/dL (70-110)
== END 2023-04-24 13:37 | disposition home or self-care (01) | DRG 322 ==
LOC: ER 04-21 00:30 → CSU 04-21 02:39
PROVIDERS: Family Medicine; Internal Medicine; Specialist; Student in an Organized Health Care Education/Training Program; Admitting Provider Student in an Organized Health Care Education/Training Program; Emergency Provider Physician Assistant; PCP Family Medicine; Visit Provider Internal Medicine
PROC: 4A023N7 Measurement of Cardiac Sampling and Pressure, Left Heart, Percutaneous Approach (ICD-10-PCS; principal; 2023-04-23 08:30)
PROC: 4A023N7 Measurement of Cardiac Sampling and Pressure, Left Heart, Percutaneous Approach (ICD-10-PCS; 2023-04-23 08:30)
DX: I21.4 Non-ST elevation (NSTEMI) myocardial infarction (principal); I25.84 Coronary atherosclerosis due to calcified coronary lesion; Z86.718 Personal history of other venous thrombosis and embolism; Z79.01 Long term (current) use of anticoagulants; Z86.711 Personal history of pulmonary embolism; E11.9 Type 2 diabetes mellitus without complications; Z79.84 Long term (current) use of oral hypoglycemic drugs; J43.9 Emphysema, unspecified; I10 Essential (primary) hypertension; K76.0 Fatty (change of) liver, not elsewhere classified; R25.1 Tremor, unspecified; F17.210 Nicotine dependence, cigarettes, uncomplicated; E78.2 Mixed hyperlipidemia
CPT/HCPCS: 36415; 36416; 71045; 71275; 80048; 80053; 81003; 82746; 82962; 83540; 83550; 83735; 83880; 84484; 85025; 85347; 85610; 85730; 87426; 87804; 92978; 93005; 93306; 93458; 96367; 96372; 96374; 96375; 96376; 99152; 99153; 99285; C1724; C1725; C1753; C1769; C1874; C1887; C1894; C9602; J1644; J1815; J2250; J2270; J2405; J3010; J3490; J7030; Q9967

== ENCOUNTER → 2023-05-07 14:38 | Outpatient (BNVA) | payer OTHER, SELFPAY | PROVIDERS: PCP Family Medicine; Visit Provider Nurse Practitioner Family | DX: I10 Essential (primary) hypertension (principal); I25.10 Atherosclerotic heart disease of native coronary artery without angina pectoris; Z09 Encounter for follow-up examination after completed treatment for conditions other than malignant neoplasm | CPT/HCPCS: 36415; 80048 ==

== ENCOUNTER → 2023-07-10 08:59 | Outpatient (BNVA) | payer OTHER, SELFPAY | PROVIDERS: PCP Family Medicine; Visit Provider Podiatrist Foot & Ankle Surgery | DX: S92.331A Displaced fracture of third metatarsal bone, right foot, initial encounter for closed fracture; S92.341A Displaced fracture of fourth metatarsal bone, right foot, initial encounter for closed fracture; S92.321A Displaced fracture of second metatarsal bone, right foot, initial encounter for closed fracture; V29.99XA Rider (driver) (passenger) of other motorcycle injured in unspecified traffic accident, initial encounter; R23.4 Changes in skin texture; E11.9 Type 2 diabetes mellitus without complications; Z79.84 Long term (current) use of oral hypoglycemic drugs | CPT/HCPCS: 73630 ==

== ENCOUNTER 2023-07-10 11:30 | Outpatient (CLI) | payer OTHER, SELFPAY | END 2023-07-10 11:31 | disposition home or self-care (01) | LOC: SPT 11:31 | PROVIDERS: PCP Family Medicine; Visit Provider Podiatrist Foot & Ankle Surgery | DX: Z46.89 Encounter for fitting and adjustment of other specified devices (principal); S92.309D Fracture of unspecified metatarsal bone(s), unspecified foot, subsequent encounter for fracture with routine healing; X58.XXXD Exposure to other specified factors, subsequent encounter | CPT/HCPCS: 97760; L4361 ==

== ENCOUNTER → 2023-07-23 15:53 | Outpatient (BNVA) | payer OTHER, SELFPAY | PROVIDERS: PCP Family Medicine; Visit Provider Family Medicine | DX: E11.9 Type 2 diabetes mellitus without complications; Z79.899 Other long term (current) drug therapy | CPT/HCPCS: 80053; 80061; 82607; 83036 ==

== ENCOUNTER → 2023-07-24 13:00 | Outpatient (BNVA) | payer OTHER, SELFPAY | PROVIDERS: PCP Family Medicine; Visit Provider Podiatrist Foot & Ankle Surgery | DX: S92.321A Displaced fracture of second metatarsal bone, right foot, initial encounter for closed fracture (principal); S92.341A Displaced fracture of fourth metatarsal bone, right foot, initial encounter for closed fracture; S92.331A Displaced fracture of third metatarsal bone, right foot, initial encounter for closed fracture; S42.101A Fracture of unspecified part of scapula, right shoulder, initial encounter for closed fracture; V29.99XA Rider (driver) (passenger) of other motorcycle injured in unspecified traffic accident, initial encounter; R23.4 Changes in skin texture; E11.9 Type 2 diabetes mellitus without complications; Z79.84 Long term (current) use of oral hypoglycemic drugs | CPT/HCPCS: 73010; 73630 ==

== ENCOUNTER 2023-08-01 18:44 | Observation (INO) | payer OTHER, SELFPAY ==
[2023-08-01 18:47] VITALS: BP 125/76; PULSE 116; RESP 16; TEMP 36.8; O2SAT 93
[2023-08-01 19:23] VITALS: BP 151/84; PULSE 108; RESP 93; O2SAT 92
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
[2023-08-01 19:40] LABS: Glucose Point of Care 163 mg/dL (70-110)
[2023-08-01 19:43] LABS: Basophils % 0.3 %; Eosinophils % 0.1 %; Hematocrit 45.5 % (37-53); Lymphocytes # 1.1 10^3/uL (0.8-4.8); Lymphocytes % 11.3 %; Mean Corpuscular HGB Conc 33.8 g/dL (30-55); Mean Corpuscular Hemoglobin 28.3 pg (27-33); Mean Corpuscular Volume 83.5 fl (82-101); Mean Platelet Volume 9.5 fL (7.4-10.4); Monocytes # 1.5 10^3/uL (0.2-0.9); Monocytes % 15.1 %; Neutrophils # 7.07 10^3/uL (1.8-7.7); Neutrophils % 72.9 %; Nucleated Red Blood Cells % 0 %; Platelet Count 222 10^3/cmm (157-399); Red Blood Count 5.45 10^6/uL (3.85-5.65); Red Cell Distribution Width 16.2 % (12.1-15.1)
--- NOTE | 2023-08-01 19:45 | CTR_ITS ---
PROCEDURE INFORMATION: Exam: CT Abdomen And Pelvis With Contrast Exam date and time: 08/01/2023 7:54 PM Age: 58 years old Clinical indication: Nausea and vomiting; Prior surgery; Surgery date: 6+ months; Surgery type: Colon; Additional info: Abd pain TECHNIQUE: Imaging protocol: Computed tomography of the abdomen and pelvis with contrast. Radiation optimization: All CT scans at this facility use at least one of these dose optimization techniques: automated exposure control; mA and/or kV adjustment per patient size (includes targeted exams where dose is matched to clinical indication); or iterative reconstruction. Contrast material: OMNI 350; Contrast volume: 100 ml; Contrast route: INTRAVENOUS (IV); COMPARISON: CT abdomen pelvis wo/w [id number] 10/13/2020 8:02 AM RADIATION DOSE METRICS: Total DLP (mGy-cm): 555.5 FINDINGS: Lungs: Borderline bilateral lower lobe cylindrical bronchiectasis developed compared to 10/13/2020. Liver: Mild diffuse hepatic steatosis, improved. Gallbladder and bile ducts: Normal. No calcified stones. No ductal dilation. Pancreas: Normal. No ductal dilation. Spleen: Normal. No splenomegaly. Adrenal glands: Normal. No mass. Kidneys and ureters: 3.3 cm left renal cyst with simple features, mildly enlarged from 10/13/2020. A few additional smaller hypodense lesions in the left kidney and right kidney, most of which are stable and visualized on the prior study consistent with additional benign etiology/cysts. Stomach and bowel: Few hyperdense diverticuli in the sigmoid colon. Mild diffuse colonic wall thickening and fluid-filled colon suggestive of colitis. Features of prior right hemicolectomy and ileotransverse anastomosis. Appendix: No evidence of appendicitis. Intraperitoneal space: Unremarkable. No free air. No significant fluid collection. Vasculature: Unremarkable. No abdominal aortic aneurysm. Lymph nodes: Unremarkable. No enlarged lymph nodes. Urinary bladder: Chronic mild thickening of the bladder wall Reproductive: The prostate is nonenlarged. Bones/joints: Unremarkable. No acute fracture. Soft tissues: Stable small fat containing ventral epigastric hernia and tiny fat containing umbilical hernia CT/CT abdomen pelvis w con* [id number] IMPRESSION: 1. Mild fluid-filled thickened transverse descending colon suggestive of colitis. 2. Otherwise no acute abdominopelvic abnormality. Other chronic and postsurgical findings detailed above. COMMENTS: Consistent with the [place] [employer]'s Incidental Findings Committee white paper (J Am Sandip Radiol 2018): Any incidental renal lesion less than 1 cm or classified as too small to characterize, or any incidental cystic renal lesion characterized as simple-appearing, is likely benign. No follow-up imaging is recommended for these lesions per consensus recommendations based on imaging criteria.
[2023-08-01] MEDS: ondansetron 2 mg/ML SDV 2 mL 4 MG IVP (19:47)
[2023-08-01 19:49] LABS: Bilirubin Urine Neg (Negative); Blood Urine Neg (Negative); Glucose Urine UA 4+ (Normal); Ketones Urine 3+ (Negative); Nitrate Urine Negative (Negative); Protein Urine Trace (Negative); Urine Appearance Clear (CLEAR); Urine Color Yellow (Yellow); pH Urine 5 (5-7)
[2023-08-01 19:50] LABS: Add Urine Microscopic? YES; Leukocyte Esterase Urine Negative (Negative); Urobilinogen Urine Norm (Negative)
[2023-08-01 19:51] LABS: Ketone (Acetest) Serum Positive (Negative)
[2023-08-01 19:54] LABS: INR 0.98 (0.8-1.2)
[2023-08-01 19:56] LABS: Add Urine Culture? No; Hyaline Casts Urine 0-4 /lpf; Mucus Urine TRACE /hpf; RBC Urine 0-4 /hpf (0-2); Squamous Epithelial Cell Urine RARE /hpf (0-5)
[2023-08-01] MEDS: iohexol 350 mg/mL 500 mL Btl (per mL) IV (19:56)
[2023-08-01 20:01] LABS: Lactic Sepsis W/Reflex 1.1 mmol/L (0.5-2.2)
[2023-08-01 20:02] LABS: Alanine Aminotransferase 11 U/L (0-41); Alkaline Phosphatase 82 U/L (40-130); Anion Gap 27.2 (5-19); Aspartate Amino Transferase 10 U/L (0-40); Blood Urea Nitrogen 15 mg/dL (6-20); Calcium 8.9 mg/dL (8.5-10.5); Carbon Dioxide 17 mmol/L (22-29); Chloride 91 mmol/L (98-107); Creatinine Clr Calc Pharmacy 137.3447; Globulin 3.6 g/dL (1.3-4.6); Glomerular Filtration Rate 138.4 mL/min (90-130); Glucose 162 mg/dL (65-115); Lipase 20 U/L (13-60); Osmolality Calculated 276 mOsm/kg (285-295); Potassium 4.2 mmol/L (3.5-5.1); Sodium 131 mmol/L (136-145); Total Bilirubin 0.6 mg/dL (0.15-1.2); Total Protein 7.6 g/dL (6.6-8.7)
[2023-08-01] MEDS: sodium chloride 0.9% 1,000 ML 999 ML IV ×2 (20:05→20:55)
[2023-08-01 20:09] LABS: Procalcitonin 0.21 ng/mL (0-0.5)
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
[2023-08-01 20:52] LABS: ABG PCO2 32.8 mmHg (35-45); ABG PH Result 7.37 (7.35-7.45); Alveolar-Arterial Oxygen Gradi 5.3 mmHg (5-10); Arterial Blood Gas Hematocrit 44.6 % (42-52); Base Excess ABG -5.2 mmol/L (-2.0-2.0); Blood Gas Allen Test Pos; Blood Gas Sample Site Radial, left; Blood Gas Sample Type Arterial; Carboxyhemoglobin 3.1 %THgb (0.4-20.1); HGB O2 Sat 91.2 % (95-100); Ionized Calcium Level - ABG 1.1 mmol/L (1.1-1.4); Methemoglobin 0.5 % (0.4-1.5); Oxygen Device ROOM AIR; Oxygen Saturation ABG 94.7; PO2 ABG 68.3 mmHg (80.0-100.0); Potassium Level - ABG 3.8 mmol/L (3.5-5.0); Total Hemoglobin 14.6 g/dL (14-18)
[2023-08-01 21:18] LABS: Estmated Average Glucose 174; Hemoglobin A1C 7.7 % (4.0-6.0)
[2023-08-01] MEDS: dextrose 5%-ns + KCl 40 40 MEQ/1,000 ML BAG 100 MEQ IV (21:45)
[2023-08-01] MEDS: INSULIN REGULAR IN 0.9 % NACL 100 UNIT/100 ML BAG 7.5 UNIT IV (22:01)
[2023-08-01] MEDS: piperacillin-tazobactam 3.375 GM in sodium chloride 0.9% (plus) 50 ML IV (22:12)
[2023-08-01] MEDS: enoxaparin 40 mg/0.4 mL Syringe SUBCUT (22:14)
[2023-08-01 22:18] VITALS: RESP 16; O2SAT 97
[2023-08-01] MEDS: morphine IR 15 mg Tablet PO (22:18)
[2023-08-01 22:36] LABS: Glucose Point of Care 138 mg/dL (70-110)
[2023-08-01 22:36] LABS: Glucose Point of Care 119 mg/dL (70-110)
[2023-08-01 23:46] LABS: Glucose Point of Care 118 mg/dL (70-110)
[2023-08-01 23:49] VITALS: PULSE 102; RESP 18; O2SAT 96
[2023-08-02] VITALS (16 sets, daily range): BP systolic 115–162; BP diastolic 63–85; PULSE 79–116; RESP 15–27; TEMP 36.6–36.8; O2SAT 88–96; BMI 25.9
--- NOTE | 2023-08-02 00:03 | PC.NURSE ---
vitals were deleted from system before able to chart after moving to different room.
[2023-08-02 00:06] LABS: Vitamin B12 434 pg/mL (232-1245)
[2023-08-02 00:34] LABS: Glucose Point of Care 106 mg/dL (70-110)
[2023-08-02 02:02] LABS: Anion Gap 20.1 (5-19); Blood Urea Nitrogen 11 mg/dL (6-20); Calcium 8.2 mg/dL (8.5-10.5); Carbon Dioxide 18 mmol/L (22-29); Chloride 100 mmol/L (98-107); Creatinine Clr Calc Pharmacy 137.3447; Glomerular Filtration Rate 138.4 mL/min (90-130); Glucose 98 mg/dL (65-115); Osmolality Calculated 277 mOsm/kg (285-295); Potassium 4.1 mmol/L (3.5-5.1); Sodium 134 mmol/L (136-145)
[2023-08-02 03:38] LABS: Glucose Point of Care 94 mg/dL (70-110)
[2023-08-02 03:38] LABS: Glucose Point of Care 100 mg/dL (70-110)
[2023-08-02 03:39] LABS: Basophils % 0.3 %; Eosinophils % 0.1 %; Hematocrit 36.6 % (37-53); Lymphocytes # 1.2 10^3/uL (0.8-4.8); Mean Corpuscular HGB Conc 33.1 g/dL (30-55); Mean Corpuscular Hemoglobin 28.3 pg (27-33); Mean Corpuscular Volume 85.5 fl (82-101); Mean Platelet Volume 9.4 fL (7.4-10.4); Monocytes # 1.1 10^3/uL (0.2-0.9); Monocytes % 14.1 %; Neutrophils # 5.35 10^3/uL (1.8-7.7); Neutrophils % 69.2 %; Nucleated Red Blood Cells % 0 %; Platelet Count 178 10^3/cmm (157-399); Red Blood Count 4.28 10^6/uL (3.85-5.65); Red Cell Distribution Width 16.5 % (12.1-15.1); White Blood Count 7.73 10^3/uL (3.29-11.43)
[2023-08-02 03:57] LABS: Anion Gap 17.7 (5-19); Blood Urea Nitrogen 9 mg/dL (6-20); Calcium 6.8 mg/dL (8.5-10.5); Carbon Dioxide 16 mmol/L (22-29); Chloride 107 mmol/L (98-107); Glomerular Filtration Rate 220.9 mL/min (90-130); Glucose 107 mg/dL (65-115); Magnesium 1.4 mg/dL (1.7-2.3); Osmolality Calculated 283 mOsm/kg (285-295); Phosphorus 2.4 mg/dL (2.5-4.5); Potassium 3.7 mmol/L (3.5-5.1); Sodium 137 mmol/L (136-145)
[2023-08-02] MEDS: piperacillin-tazobactam 3.375 GM in sodium chloride 0.9% (plus) 50 ML IV ×3 (05:12→20:35)
[2023-08-02] MEDS: sodium chloride 0.9% 1,000 ML 125 ML IV ×2 (05:36→12:17)
[2023-08-02 05:45] LABS: Glucose Point of Care 121 mg/dL (70-110)
[2023-08-02 07:20] LABS: Glucose Point of Care 175 mg/dL (70-110)
[2023-08-02] MEDS: potassium phosphate (mEq K) 40 MEQ in sodium chloride 0.9% (100 ml) 100 ML 27.2699999999999996 MEQ IV (07:24)
[2023-08-02] MEDS: insulin lispro 100 unit/1 mL SUBCUT (07:28)
[2023-08-02] MEDS: sennosides-docusate Tablet 1 TAB PO (09:36)
[2023-08-02] MEDS: clopidogrel 75 mg Tablet PO (09:36)
[2023-08-02] MEDS: metoprolol succinate ER (24 HR) 25 mg Tablet PO (09:48)
[2023-08-02 11:08] LABS: Glucose Point of Care 130 mg/dL (70-110)
--- NOTE | 2023-08-02 14:33 | PM.PN ---
Subjective Subjective: Patient was seen this morning, denies any fevers, no chills, no cough continues to have abdominal discomfort, no diarrhea currently, denies a history of food poisoning, drinks city water, no lightheadedness, no dizziness, Vitals/I&O/Wt Last Vital Signs Temp 97.9 F 08/02/23 11:07 Pulse 84 08/02/23 12:47 Resp 20 H 08/02/23 12:47 BP 126/71 08/02/23 11:07 Pulse Ox 94 08/02/23 12:47 O2 Del Method Nasal Cannula 08/02/23 12:47 O2 Flow Rate 2 08/02/23 12:47 08/01/23 08/02/23 08/02/23 22:59 06:59 14:59 Intake Total 1000 / 1000 804.467 / 1804.673 397.9367 / 993.9276 Balance 1000 / 1000 804.467 / 1804.339 705.5465 / 993.9276 Weight last 48 hrs Weight 79.605 kg Weight 74.843 kg Physical Exam Const: COMMON NORMALS: no acute distress and patient oriented x3 Resp: COMMON NORMALS: normal respiratory effort, No retractions, No use of accessory muscles and clear to auscultation bilaterally AUSCULTATION: clear to auscultation bilaterally Cardio: COMMON NORMALS: regular rate, regular rhythm, S1 normal heart sound present and S2 normal heart sound present RATE: regular rate RHYTHM: regular rhythm HEART SOUNDS: S1 normal heart sound present and S2 normal heart sound present GI: OTHER: Abdomen soft, slightly distended, does have diffuse tenderness to examination no right upper quadrant tenderness Extremity: COMMON NORMALS: no pedal edema Neuro: COMMON NORMALS: patient oriented x3 Psych: COMMON NORMALS: mental status grossly normal Data 08/02/23 03:35 08/02/23 03:35 A&P Assessment and plan (1) Hypertension: Qualifiers: Hypertension type: primary hypertension Qualified Code(s): I10 - Essential (primary) hypertension (2) Coronary artery disease: Qualifiers: Coronary Disease-Associated Artery/Lesion type: [place] artery [place] vs. transplanted heart: [place] heart Associated angina: without angina Qualified Code(s): I25.10 - Atherosclerotic heart disease of [place] coronary artery without angina pectoris (3) History of DVT of lower extremity: (4) Uncontrolled type 2 diabetes mellitus: Qualifiers: Glycemic state: with hyperglycemia Qualified Code(s): E11.65 - Type 2 diabetes mellitus with hyperglycemia (5) Diabetic keto-acidosis: Qualifiers: Diabetes mellitus complication detail: without coma Diabetes mellitus type: type 1 Qualified Code(s): E10.10 - Type 1 diabetes mellitus with ketoacidosis without coma (6) Colitis: Plan Mild DKA Anion gap closed to 17.7 due to low blood sugars, patient did not require insulin drip, transition to subcu insulin, his blood sugars have been reasonable, will continue low-dose sliding scale ? Recheck BMP this afternoon For colitis I will start him on Zosyn No active nausea vomiting Keep him on Zofran on as-needed basis TSH within normal limits, A1c 7.7 Patient does not take insulin he is on oral antihyperglycemic agent Full code Advance diet as tolerated DVT prophylaxis patient will resume Xarelto Patient requires hospitalization for colitis, mild DKA, not requiring insulin drip, chronic subcu insulin, monitoring BMP, ? Magnesium has been replaced Attestations Medical Necessity Statement*: Patient requires hospitalization for colitis, mild DKA, Diagnoses Primary hypertension I10 Hypertension type: primary hypertension Coronary artery disease involving [place] coronary artery of [place] heart without angina pectoris I25.10 Coronary Disease-Associated Artery/Lesion type: [place] artery [place] vs. transplanted heart: [place] heart Associated angina: without angina History of DVT of lower extremity Z86.718 Uncontrolled type 2 diabetes mellitus with hyperglycemia E11.65 Glycemic state: with hyperglycemia Diabetic keto-acidosis E10.10 Diabetes mellitus complication detail: without coma Diabetes mellitus type: type 1 Colitis K52.9
[2023-08-02 16:05] LABS: Blood Urea Nitrogen 8 mg/dL (6-20); Calcium 8.1 mg/dL (8.5-10.5); Carbon Dioxide 19 mmol/L (22-29); Chloride 100 mmol/L (98-107); Creatinine Clr Calc Pharmacy 169.1523; Glomerular Filtration Rate 170.8 mL/min (90-130); Glucose 149 mg/dL (65-115); Osmolality Calculated 277 mOsm/kg (285-295); Sodium 133 mmol/L (136-145)
[2023-08-02 17:07] LABS: Glucose Point of Care 130 mg/dL (70-110)
[2023-08-02] MEDS: ondansetron 2 mg/ML SDV 2 mL 4 MG IVP (17:20)
[2023-08-02] MEDS: rivaroxaban 10 mg Tablet 20 MG PO (20:34)
[2023-08-02] MEDS: atorvastatin 40 mg Tablet PO (20:35)
[2023-08-02 20:54] LABS: Glucose Point of Care 183 mg/dL (70-110)
[2023-08-02] MEDS: sodium chloride 0.9% 1,000 ML 75 ML IV (22:38)
[2023-08-03 04:00] VITALS: BP 137/84; PULSE 86; RESP 17; TEMP 36.8; O2SAT 96
[2023-08-03] MEDS: piperacillin-tazobactam 3.375 GM in sodium chloride 0.9% (plus) 50 ML IV (05:08)
[2023-08-03 06:10] LABS: Blood Urea Nitrogen 8 mg/dL (6-20); Calcium 8.5 mg/dL (8.5-10.5); Carbon Dioxide 21 mmol/L (22-29); Chloride 100 mmol/L (98-107); Creatinine Clr Calc Pharmacy 170.0616; Glomerular Filtration Rate 170.8 mL/min (90-130); Glucose 134 mg/dL (65-115); Osmolality Calculated 276 mOsm/kg (285-295); Sodium 133 mmol/L (136-145)
[2023-08-03 06:25] LABS: Glucose Point of Care 140 mg/dL (70-110)
[2023-08-03 07:37] VITALS: BP 142/81; PULSE 88; RESP 16; TEMP 36.7; O2SAT 95
[2023-08-03 07:47] VITALS: PULSE 79; RESP 18; O2SAT 94
[2023-08-03] MEDS: metoprolol succinate ER (24 HR) 25 mg Tablet PO (08:43)
[2023-08-03] MEDS: sennosides-docusate Tablet 1 TAB PO (08:43)
[2023-08-03] MEDS: clopidogrel 75 mg Tablet PO (08:43)
[2023-08-03 10:56] LABS: Glucose Point of Care 241 mg/dL (70-110)
[2023-08-03 11:23] VITALS: O2SAT 94; O2SAT 97
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
[2023-08-03 11:39] VITALS: BP 126/71; PULSE 69; RESP 17; TEMP 36.6; O2SAT 93
[2023-08-03 11:40] VITALS: PULSE 79; RESP 18; O2SAT 94
--- NOTE | 2023-08-03 11:40 | PC.NURSE ---
Discharge instructions provided to pt. NO questions or concerns at this time. Awaiting his for a ride home.
[2023-08-03] MEDS: insulin lispro 100 unit/1 mL SUBCUT (11:45)
== END 2023-08-03 12:18 | disposition home or self-care (01) ==
LOC: ER 20:35 → ER IP 08-02 01:09 → MEDSURG 08-03 06:34
PROVIDERS: Admitting Provider Internal Medicine; Emergency Provider Internal Medicine; PCP Family Medicine; Visit Provider Family Medicine
DX: E10.10 Type 1 diabetes mellitus with ketoacidosis without coma (principal); R11.2 Nausea with vomiting, unspecified; K52.9 Noninfective gastroenteritis and colitis, unspecified; E11.65 Type 2 diabetes mellitus with hyperglycemia; Z86.718 Personal history of other venous thrombosis and embolism; I25.10 Atherosclerotic heart disease of native coronary artery without angina pectoris; I10 Essential (primary) hypertension; Z79.84 Long term (current) use of oral hypoglycemic drugs; Z86.010 Personal history of colon polyps; F17.210 Nicotine dependence, cigarettes, uncomplicated
CPT/HCPCS: 36415; 36416; 74177; 80048; 80051; 80053; 81001; 82009; 82330; 82607; 82805; 82962; 83036; 83605; 83690; 83735; 84100; 84145; 85025; 85610; 94760; 96365; 96366; 96367; 96372; 96375; 99285; G0378; J1650; J1815; J2405; J2543; J7030; Q9967

== ENCOUNTER → 2023-08-14 12:57 | Outpatient (BNVA) | payer OTHER, SELFPAY | PROVIDERS: PCP Family Medicine; Visit Provider Podiatrist Foot & Ankle Surgery | DX: S92.331A Displaced fracture of third metatarsal bone, right foot, initial encounter for closed fracture; S92.341A Displaced fracture of fourth metatarsal bone, right foot, initial encounter for closed fracture; S92.321A Displaced fracture of second metatarsal bone, right foot, initial encounter for closed fracture; V29.99XA Rider (driver) (passenger) of other motorcycle injured in unspecified traffic accident, initial encounter; R23.4 Changes in skin texture; E11.9 Type 2 diabetes mellitus without complications; Z79.84 Long term (current) use of oral hypoglycemic drugs | CPT/HCPCS: 73630 ==

== ENCOUNTER → 2023-12-19 13:32 | Outpatient (BNVA) | payer OTHER, SELFPAY | PROVIDERS: PCP Family Medicine; Visit Provider Family Medicine | DX: E11.9 Type 2 diabetes mellitus without complications (principal) | CPT/HCPCS: 80053; 80061; 83036 ==

== ENCOUNTER → 2023-12-20 10:17 | Outpatient (BNVA) | payer OTHER, SELFPAY | PROVIDERS: PCP Family Medicine; Visit Provider Podiatrist Foot & Ankle Surgery | DX: M79.671 Pain in right foot (principal); Z51.89 Encounter for other specified aftercare; R23.4 Changes in skin texture; E11.69 Type 2 diabetes mellitus with other specified complication; Z79.84 Long term (current) use of oral hypoglycemic drugs | CPT/HCPCS: 73630 ==

== ENCOUNTER → 2024-01-02 09:12 | Outpatient (BNVA) | payer OTHER, SELFPAY | PROVIDERS: PCP Family Medicine; Visit Provider Internal Medicine | DX: E11.65 Type 2 diabetes mellitus with hyperglycemia (principal); E78.2 Mixed hyperlipidemia | CPT/HCPCS: 36415; 80053; 84681; 86337; 86341 ==

== ENCOUNTER 2024-02-14 10:15 | Outpatient (CLI) | payer OTHER, SELFPAY ==
--- NOTE | 2024-02-14 10:25 | XR_ITS ---
WS: [id number] XR shoulder RT min 2V* [id number] REASON FOR EXAM: RIGHT SHOULDER PAIN. RIGHT SCAPULA FRACTURE FINDINGS: Healing/healed previous comminuted fracture of the scapula at the level of the glenoid. Moderate narrowing of the acromioclavicular joint with moderate subchondral sclerosis and osteophytos is. Moderate lateral downward slant of the acromion. Glenohumeral joint space not well demonstrated but appears to be at least mildly narrowed with mild s ubchondral sclerosis in the glenoid and minimal osteophytosis of the humeral head. Moderate subchondral sclerosis and cystic change in the greater biceps tuberosity. XR/XR shoulder RT min 2V* [id number] IMPRESSION: Healing/healed scapular fracture. Moderate osteoarthritis of the acromioclavicular joint. Mild osteoarthritis of the glenohumeral joint. Moderate rotator cuff tendon arthropathy.
== END 2024-02-14 10:16 | disposition home or self-care (01) ==
LOC: RAD 10:21
PROVIDERS: PCP Family Medicine
DX: Z02.71 Encounter for disability determination (principal); M19.011 Primary osteoarthritis, right shoulder; S42.191D Fracture of other part of scapula, right shoulder, subsequent encounter for fracture with routine healing
CPT/HCPCS: 73030

== ENCOUNTER → 2024-04-03 12:16 | Outpatient (BNVA) | payer OTHER, SELFPAY | PROVIDERS: PCP Family Medicine; Visit Provider Family Medicine | DX: E11.9 Type 2 diabetes mellitus without complications (principal) | CPT/HCPCS: 80053; 80061; 82043; 83036 ==

== ENCOUNTER 2024-05-06 17:04 | Emergency (ER) | payer OTHER, SELFPAY ==
[2024-05-06 17:24] VITALS: BP 105/68; PULSE 79; RESP 17; TEMP 36.4; O2SAT 98; BMI 25.9
--- NOTE | 2024-05-06 17:39 | XRR_ITS ---
PROCEDURE INFORMATION: Exam: XR Chest Exam date and time: 05/06/2024 5:58 PM Age: 59 years old Clinical indication: Other: AMS TECHNIQUE: Imaging protocol: Radiologic exam of the chest. Views: 1 view. COMPARISON: CT angio chest PE prot [id number] 04/21/2023 12:35 AM FINDINGS: Lungs: Unremarkable. No consolidation. Pleural spaces: Unremarkable. No pleural effusion. No pneumothorax. Heart/Mediastinum: Unremarkable. No cardiomegaly. Bones/joints: Chronic changes of the right scapula due to fold fracture. XR/XR chest 1V portable [id number] IMPRESSION: As above.
[2024-05-06 18:15] LABS: Basophils # 0.1 10^3/uL (0.0-0.1); Basophils % 1.1 %; Eosinophils # 0.1 10^3/uL (0.0-0.8); Eosinophils % 1.9 %; Hematocrit 43.3 % (37-53); Lymphocytes # 1.9 10^3/uL (0.8-4.8); Lymphocytes % 28.9 %; Mean Corpuscular HGB Conc 32.8 g/dL (30-55); Mean Corpuscular Hemoglobin 27.6 pg (27-33); Mean Corpuscular Volume 84.2 fl (82-101); Mean Platelet Volume 10.2 fL (7.4-10.4); Monocytes # 0.7 10^3/uL (0.2-0.9); Monocytes % 11.1 %; Neutrophils # 3.63 10^3/uL (1.8-7.7); Neutrophils % 56.7 %; Nucleated Red Blood Cells % 0 %; Platelet Count 232 10^3/cmm (157-399); Red Blood Count 5.14 10^6/uL (3.85-5.65); Red Cell Distribution Width 16.1 % (12.1-15.1)
[2024-05-06 18:32] LABS: INR 0.97 (0.8-1.2)
[2024-05-06 18:41] LABS: Alanine Aminotransferase 14 U/L (0-41); Albumin Level 4.2 g/dL (3.5-5.2); Alkaline Phosphatase 85 U/L (40-130); Anion Gap 15.3 (5-19); Aspartate Amino Transferase 9 U/L (0-40); Blood Urea Nitrogen 17 mg/dL (6-20); Calcium 9.1 mg/dL (8.5-10.5); Carbon Dioxide 26 mmol/L (22-29); Chloride 95 mmol/L (98-107); Creatinine Clr Calc Pharmacy 101.3423; Globulin 2.8 g/dL (1.3-4.6); Glomerular Filtration Rate 98.9 mL/min (90-130); Glucose 294 mg/dL (65-115); Magnesium 1.9 mg/dL (1.7-2.3); Osmolality Calculated 286 mOsm/kg (285-295); Potassium 4.3 mmol/L (3.5-5.1); Sodium 132 mmol/L (136-145); Total Bilirubin 0.4 mg/dL (0.15-1.2)
--- NOTE | 2024-05-06 21:09 | CTR_ITS ---
PROCEDURE INFORMATION: Exam: CT Head Without Contrast Exam date and time: 05/06/2024 9:55 PM Age: 59 years old Clinical indication: Dizziness and other: Falls and confusion; Additional info: Falls, hallucinations, confusion TECHNIQUE: Imaging protocol: Computed tomography of the head without contrast. Radiation optimization: All CT scans at this facility use at least one of these dose optimization techniques: automated exposure control; mA and/or kV adjustment per patient size (includes targeted exams where dose is matched to clinical indication); or iterative reconstruction. COMPARISON: No relevant prior studies available. RADIATION DOSE METRICS: Total DLP (mGy-cm): 1339.28 FINDINGS: Brain: Normal. No hemorrhage. Unremarkable white matter. No mass effect. Cerebral ventricles: No ventriculomegaly. Paranasal sinuses: Visualized sinuses are unremarkable. No fluid levels. Mastoid air cells: Visualized mastoid air cells are well aerated. Bones: Unremarkable. No acute fracture. Soft tissues: Unremarkable. CT/CT head wo con* [id number] IMPRESSION: No acute intracranial abnormality.
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
[2024-05-06 21:44] LABS: Bacteria Urine None Seen /hpf; Hyaline Casts Urine 0-4 /lpf; RBC Urine 0-2 /hpf (0-2); Squamous Epithelial Cell Urine 0-5 /hpf (0-5); WBC Urine 0-5 /hpf (0-5)
[2024-05-06 21:45] VITALS: BP 121/72; PULSE 73; O2SAT 94
[2024-05-06 21:47] LABS: Add Urine Microscopic? YES; Bilirubin Urine Negative (Negative); Blood Urine Negative (Negative); Glucose Urine UA 3+ (Normal); Ketones Urine Trace (Negative); Leukocyte Esterase Urine Negative (Negative); Nitrate Urine Negative (Negative); Protein Urine Negative (Negative); Specific Gravity, Urine 1.032 (1.005-1.030); Urine Color Yellow (Yellow); pH Urine 6.5 (5-7)
[2024-05-06 21:48] LABS: Urine Appearance Clear (CLEAR)
[2024-05-06 22:30] VITALS: PULSE 78; O2SAT 95
[2024-05-06 22:35] LABS: Covid PCR NEGATIVE (Negative); Influenza A NEGATIVE (Negative); Influenza B NEGATIVE (Negative); Respiratory Syncytial Virus Ce NEGATIVE (Negative)
[2024-05-06 22:43] VITALS: BP 123/76; PULSE 76; O2SAT 97
--- NOTE | 2024-05-07 19:18 | DCPLANNER ---
Message sent to Neurology for follow up Patient is a 59-year-old male with past medical history of diabetes and coronary artery disease who presents the emergency department for evaluation. Family states that for the past 2 months, patient has displayed worsening signs of confusion, hallucinations, tremors, and multiple falls. Also has had elevated blood glucose readings. He has never had issues before couple of months ago,
== END 2024-05-06 22:45 | disposition home or self-care (01) ==
PROVIDERS: Emergency Medicine; Emergency Provider Physician Assistant; PCP Family Medicine
DX: R41.0 Disorientation, unspecified (principal); W19.XXXA Unspecified fall, initial encounter; Q07.9 Congenital malformation of nervous system, unspecified; Z11.52 Encounter for screening for COVID-19; F17.210 Nicotine dependence, cigarettes, uncomplicated; I25.10 Atherosclerotic heart disease of native coronary artery without angina pectoris; I10 Essential (primary) hypertension
CPT/HCPCS: 70450; 71045; 80053; 81001; 83735; 85025; 85610; 87637; 99285

== ENCOUNTER → 2024-05-09 13:04 | Outpatient (BNVA) | payer OTHER, SELFPAY | PROVIDERS: PCP Family Medicine; Visit Provider Family Medicine | DX: R41.0 Disorientation, unspecified (principal) | CPT/HCPCS: 82607; 84443; 86592 ==

== ENCOUNTER → 2024-05-12 09:36 | Outpatient (BNVA) | payer OTHER, SELFPAY | PROVIDERS: PCP Family Medicine; Visit Provider Family Medicine | DX: R94.6 Abnormal results of thyroid function studies (principal) | CPT/HCPCS: 84439; 84443 ==

== ENCOUNTER 2024-06-30 07:16 | Outpatient (CLI) | payer OTHER, SELFPAY ==
--- NOTE | 2024-06-30 08:30 | MR_ITS ---
WS: [id number] MRI BRAIN WITH AND WITHOUT CONTRAST HISTORY: I25.10 - Atherosclerotic heart disease of [place] coronary... COMPARISON: CT head 05/06/2024 TECHNIQUE: Multiplanar imaging performed through the brain with MultiHance 18 ml's IV. No acute infarcts are seen. B[place]-white matter differentiation is well preserved. Mild atrophy and mild small vessel ischemic changes in the periventricular white matter. A few additional foci of increased T2 and FLAIR signal in the subcortical white matter of the frontal lobes. No large infarct. Minimal hippocampal atrophy. No susceptibility artifacts or prior lacunar infarcts. Ventricles and extra-axial spaces are normal. Clivus and pituitary gland are normal. Visualized posterior fossa and brainstem are also normal. Postcontrast images are negative for masses or vascular malformations. Dural venous sinuses are normal. Paranasal sinuses: Well aerated with no significant disease. Mastoid air cells: Normal. Calvarium and scalp: Normal. MR/MR head wo/w con [id number] IMPRESSION: 1. No acute infarct or hemorrhage. 2. Mild volume loss and atrophy with mild small vessel disease. 3. No enhancing masses or vascular malformation. 4. Minimal hippocampal atrophy.
--- NOTE | 2024-06-30 09:15 | MR_ITS ---
WS: [id number] MRA CAROTID ARTERIES HISTORY: I25.10 - Atherosclerotic heart disease of [place] coronary... COMPARISON: None available. TECHNIQUE: MRA is performed with intravenous gadolinium. MIP and source images are reviewed. Right: Normal appearance of the RIGHT cervical common, internal and external carotid arteries. No significant stenosis or occlusion. Left: Normal appearance of the LEFT common cervical carotid artery arising from the arch. There is very mild narrowing of less than 50% at the bifurcation. There is still markedly patent internal/external carotid arteries. No stenosis. Subclavian Arteries: Normal. Vertebral Arteries: Mild small caliber and slightly irregular RIGHT vertebral artery throughout its entire course. Normal appearance of the LEFT vertebral artery. No intraluminal thrombus or hematoma noted on the RIGHT causing the stenosis. This is probably congenital. MR/MR angio neck w con* [id number] IMPRESSION: 1. Mild stenosis LEFT carotid bifurcation. Stenosis less than 50%. 2. Diffusely small caliber RIGHT vertebral artery. No evidence for dissection.
--- NOTE | 2024-06-30 10:00 | MR_ITS ---
WS: [email or web address] MRA ANGIOGRAPHY [place] OF [place] HISTORY: I25.10 - Atherosclerotic heart disease of [place] coronary... COMPARISON: None available. TECHNIQUE: 3-D MR angiography is performed of the elim ira of [place]. All images are reviewed including source images. Distal vertebral and basilar arteries are intact with no significant stenosis or plaque. Distal LEFT vertebral artery is slightly dominant. Posterior cerebral arteries are normal course and caliber. Posterior communicating arteries are both patent. Intracranial portion of the internal carotid arteries are normal course and caliber. No significant atherosclerosis, stenosis or aneurysm identified. Middle and anterior cerebral arteries are both patent with no significant disease. Anterior communicating artery is also normal. MR/MR angio head wo con [id number] IMPRESSION: Normal MRA elim ira of [place].
== END 2024-06-30 07:17 | disposition home or self-care (01) ==
LOC: RAD 07:17
PROVIDERS: PCP Family Medicine; Visit Provider Psychiatry & Neurology Neurology
DX: I25.10 Atherosclerotic heart disease of native coronary artery without angina pectoris (principal); I10 Essential (primary) hypertension; E78.2 Mixed hyperlipidemia; R26.89 Other abnormalities of gait and mobility; R55 Syncope and collapse; I65.22 Occlusion and stenosis of left carotid artery; R93.0 Abnormal findings on diagnostic imaging of skull and head, not elsewhere classified; G31.89 Other specified degenerative diseases of nervous system
CPT/HCPCS: 70544; 70548; 70553

== ENCOUNTER → 2024-07-24 07:15 | Outpatient (BNVA) | payer OTHER, SELFPAY | PROVIDERS: PCP Family Medicine; Visit Provider Family Medicine | DX: E11.65 Type 2 diabetes mellitus with hyperglycemia (principal); E78.2 Mixed hyperlipidemia | CPT/HCPCS: 80053; 80061; 82043; 83036 ==

== ENCOUNTER 2024-10-06 09:27 | Outpatient (CLI) | payer OTHER, SELFPAY ==
--- NOTE | 2024-10-06 09:29 | MR_ITS ---
WS: [email or web address] MR CERVICAL SPINE WO/W HISTORY: R25.1 - Tremor, unspecified TECHNIQUE: Sagittal T1, T2 and T2 inversion recovery; axial T2, T2 gradient and fiesta. Post gadolinium imaging with fat saturation technique. FINDINGS: Straightening of the normal cervical lordosis. No high grade central canal narrowing. Cord signal is normal. No abnormal gadolinium enhancement. C2-3: Moderate RIGHT facet arthropathy. Mild RIGHT bony foraminal narrowing. C3-4: Advanced LEFT facet arthropathy. Moderate to severe LEFT bony foraminal narrowing. Spinal canal is patent. C4-5: Advanced RIGHT facet arthropathy. Moderate LEFT bony foraminal narrowing. Spinal canal is patent. C5-6: Disc osteophyte complex with mild central canal stenosis. Severe LEFT and moderate RIGHT bony foraminal narrowing. Uncovertebral joint hypertrophy. C6-7: LEFT paracentral disc protrusion with indentation of the LEFT ventral cervical cord. Moderate LEFT bony foraminal narrowing. Mild RIGHT foraminal narrowing. Mild central canal stenosis. C7-T1: Spinal canal and foramen are patent. MR/MR cervical spine wo/w [id number] IMPRESSION: 1. Straightening of the normal cervical lordosis. No high-grade central canal narrowing. Cord signal is normal. 2. No abnormal gadolinium enhancement. 3. LEFT paracentral disc protrusion C6-7 with indentation of the LEFT ventral cervical cord. Mild central canal stenosis. Moderate LEFT foraminal narrowing a t this level. 4. Mild central canal stenosis C5-6 with severe LEFT greater than RIGHT bony f oraminal narrowing 5. Moderate to advanced facet arthropathy LEFT C3-4 and RIGHT C4-5. 6. Moderate to severe LEFT C3-4 bony foraminal narrowing. 7. Moderate LEFT C4-5 bony foraminal narrowing.
[2024-10-06] MEDS: gadobenate dimeglumine 20 mL vial 17 ML IV (10:08)
== END 2024-10-06 09:28 | disposition home or self-care (01) ==
LOC: RAD 09:27
PROVIDERS: PCP Family Medicine; Visit Provider Specialist
DX: R25.1 Tremor, unspecified (principal); M50.223 Other cervical disc displacement at C6-C7 level; M48.02 Spinal stenosis, cervical region; M47.892 Other spondylosis, cervical region; R93.7 Abnormal findings on diagnostic imaging of other parts of musculoskeletal system; M25.78 Osteophyte, vertebrae; M47.812 Spondylosis without myelopathy or radiculopathy, cervical region
CPT/HCPCS: 72156

== ENCOUNTER 2024-11-12 11:06 | Outpatient (CLI) | payer OTHER, SELFPAY ==
--- NOTE | 2024-11-12 11:17 | XR_ITS ---
WS: [email or web address] XR lumbar spine 2-3V* [id number] REASON FOR EXAM: vertebral tenderness after fall, striking back on machine FINDINGS: Relatively normal spinal curvatures. No significant vertebral body compression deformity or focal lesion. Intervertebral disc spaces are intact and relatively well preserved. Mild narrowing of the L5-S1 disc space. Mild osteophytosis of the vertebral bodies L1-L5. No spondylolysis. No significant spondylolisthesis. Mild focal aneurysmal dilatation (2.8 cm max diameter) of the abdominal aorta. XR/XR lumbar spine 2-3V* [id number] IMPRESSION: Minimal/mild degenerative spondylosis as above.
== END 2024-11-12 11:07 | disposition home or self-care (01) ==
PROVIDERS: PCP Family Medicine; Visit Provider Family Medicine
DX: M54.9 Dorsalgia, unspecified (principal); W19.XXXA Unspecified fall, initial encounter; M47.816 Spondylosis without myelopathy or radiculopathy, lumbar region
CPT/HCPCS: 72100

== ENCOUNTER → 2024-11-27 15:26 | Outpatient (BNVA) | payer OTHER, SELFPAY | PROVIDERS: PCP Family Medicine; Visit Provider Orthopaedic Surgery | DX: M54.2 Cervicalgia (principal) | CPT/HCPCS: 72050 ==

== ENCOUNTER → 2025-02-04 10:52 | Outpatient (BNVA) | payer OTHER, SELFPAY | PROVIDERS: PCP Family Medicine; Visit Provider Internal Medicine Endocrinology, Diabetes & Metabolism | DX: E11.9 Type 2 diabetes mellitus without complications (principal) | CPT/HCPCS: 36415; 80053; 84681; 86337; 86341 ==

== ENCOUNTER 2025-02-09 07:44 | Outpatient (CLI) | payer OTHER, SELFPAY ==
--- NOTE | 2025-02-09 08:31 | CT_ITS ---
WS: [email or web address] LDCT LUNG CANCER SCREENING TECHNIQUE: Noncontrast CT of the chest with coronal and sagittal reformatted images. CLINICAL INFORMATION: lung cancer screening COMPARISON: CTA 04/21/2023 DLP: 63.19 mGy.cm DIvol: Mean CTDIvol: 1.20 (mGy) All CT scans at [facility] use at least one of these dose optimization techniques: automated exposure control; mA and/or kV adjustment per patient size (includes targeted exams where dose is matched to clinical indication); or iterative reconstruction. FINDINGS: Calcified [place] LEFT lower lobe. 5 mm noncalcified nodule LEFT upper lobe.This appears stable since 04/21/2023. Aortic calcification. Coronary calcification. No mediastinal or hilar lymphadenopathy. No axillary lymphadenopathy. Partially visualized 2.5 cm LEFT renal cyst. Adrenal glands are normal. CT/CT lung screening [id number] IMPRESSION: LUNG-RADS: 2-Benign Appearance or Behavior FOLLOW UP: 12 Month: Continue annual screening with LDCT
== END 2025-02-09 07:45 | disposition home or self-care (01) ==
LOC: RAD 07:45
PROVIDERS: PCP Family Medicine; Visit Provider Family Medicine
DX: Z12.2 Encounter for screening for malignant neoplasm of respiratory organs (principal); Z87.891 Personal history of nicotine dependence; R91.1 Solitary pulmonary nodule; J98.4 Other disorders of lung; I70.0 Atherosclerosis of aorta; I25.10 Atherosclerotic heart disease of native coronary artery without angina pectoris; N28.1 Cyst of kidney, acquired
CPT/HCPCS: 71271

== ENCOUNTER → 2025-02-11 14:15 | Outpatient (BNVA) | payer OTHER, SELFPAY | PROVIDERS: PCP Family Medicine; Visit Provider Family Medicine | DX: E11.65 Type 2 diabetes mellitus with hyperglycemia (principal) | CPT/HCPCS: 80061; 82043; 83036 ==

== ENCOUNTER → 2025-02-17 15:23 | Outpatient (BNVA) | payer OTHER, SELFPAY | PROVIDERS: PCP Family Medicine; Visit Provider Specialist | DX: R25.1 Tremor, unspecified (principal); R41.0 Disorientation, unspecified | CPT/HCPCS: 36415; 82542; 83520 ==